=== PATIENT | male | born 1955 | race Caucasian/White ===

== ENCOUNTER 2019-06-25 03:30 | Observation (INO) | payer OTHER ==
[2019-06-25] MEDS ORDERED: Acetaminophen 120 MG Suppository ONE (04:47)
[2019-06-25] MEDS ORDERED: Acetaminophen 325 MG TAB ONE ×2 (04:48→04:49)
[2019-06-25 05:37] LABS: #Basophils 0.1 thou/uL (0.0-0.2); #Eosinphils 0.1 thou/uL (0.0-0.7); #Lymphocytes 1.5 thou/uL (1.20-3.40); #Monocytes 0.8 thou/uL (0.11-0.59); #Neutrophils 3.1 thou/uL (1.40-6.50); %Eosinophils 1.1 % (0.0-10.0); %Lymphocytes 27.3 % (21.0-51.0); %Monocytes 14.8 % (0.0-10.0); %Neutrophils 55.9 % (42.0-75.0); Hemoglobin 7.6 g/dL (14.0-18.0); Hypochromia SLIGHT = 6-15 cells (100X) (0-5/hpf); MDiff Complete? YES; Mean Corpuscular HGB CONC 31.7 g/dL (32.0-36.0); Mean Corpuscular Hemoglobin 21.6 pg (27.0-31.0); Mean Corpuscular Volume 68.2 fL (78.0-98.0); Mean Platelet Volume 9.4 fL (7.4-10.4); Microcytosis SLIGHT = 6-15 cells (100X) (0-5/hpf); Platelet Count 279 thou/uL (130-400); Platelet Morphology Comment Appears Adequate; RBC Distribution Width 22.6 % (11.5-14.5); Red Blood Cell (RBC) Count 3.49 mill/uL (4.70-6.10); White Blood Cell (WBC) Count 5.6 thou/uL (4.8-10.8)
[2019-06-25 06:01] VITALS: BMI 27.6
[2019-06-25] MEDS ORDERED: Zolpidem Tartrate 5 MG TAB PO PRN (07:36)
[2019-06-25] MEDS ORDERED: Ondansetron ODT 4 MG TAB PO PRN (07:36)
[2019-06-25] MEDS ORDERED: PROVENTIL INHALER 6.7 G (200 INHALATIONS) INH PRN (07:38)
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
[2019-06-25] MEDS: Aspirin 81 mg Enteric Coated Tablet PO SCH (08:47)
[2019-06-25] MEDS: Lisinopril 20 MG TAB PO SCH (08:48)
[2019-06-25] MEDS: Famotidine 20 MG TAB PO SCH ×2 (08:48→21:04)
[2019-06-25] MEDS: Metoprolol Tartrate 25 MG TAB PO SCH ×2 (08:49→21:04)
[2019-06-25] MEDS: Loratadine 10 MG TAB PO SCH (08:49)
[2019-06-25] MEDS ORDERED: DILTIAZEM HCL 180 MG PO SCH (09:00)
[2019-06-25] MEDS ORDERED: Non-Formulary Item 1 EACH (Ranitidine Hcl [Ranitidine Hcl] 150 MG) PO SCH (09:00)
[2019-06-25] MEDS ORDERED: Non-Formulary Item 1 EACH (Loratadine [Claritin] 10 MG) PO SCH (09:00)
[2019-06-25] MEDS ORDERED: Non-Formulary Item 1 EACH (Lisinopril [Lisinopril] 40 MG) PO SCH (09:00)
--- NOTE | 2019-06-25 09:19 | RAD ---
CHEST 1 VIEW: HISTORY: COPD. FINDINGS: Heart size and mediastinum are within normal limits. The lungs are clear of infiltrates. There are some degenerative changes of both shoulders. There are some cystic changes seen of the left glenoid and left humeral head. Changes could indicate some type of inflammatory arthritis. IMPRESSION: No active intrathoracic disease. POS: [facility]
[2019-06-25 09:21] LABS: Bilirubin Negative (Negative); Blood, Urine Negative (Negative); Clarity Clear (Clear); Glucose, Urine (Dipstick) Normal (Negative); Leukocyte Negative Leu/uL (Negative); Nitrite Negative (Negative); Protein, Urine (Dipstick) 10 mg/dL (Neg-Trace); RBC/HPF 0-3 HPF (0-3); Squamous Epithelial None Seen HPF (0-3); Urobilinogen Normal mg/dL (Less than 2); WBC/HPF 0-3 HPF (0-3)
[2019-06-25] MEDS: Calcium Carbonate + Vit D 250 MG TAB PO SCH ×3 (09:24→21:04)
[2019-06-25 09:26] LABS: Anion Gap 11 mmol/L (10-20); BUN (Urea Nitrogen) 10 mg/dL (8.4-25.7); Carbon Dioxide 17 mmol/L (23-31); Chloride 96 mmol/L (98-107); Potassium 4.1 mmol/L (3.5-5.1); Sodium 120 mmol/L (136-145)
[2019-06-25 09:27] LABS: ALT (SGPT) 35 U/L (8-55); AST (SGOT) 42 U/L (5-34); Albumin 3.6 g/dL (3.4-4.8); Alkaline Phosphatase 92 U/L (40-110); Bilirubin, Total 0.6 mg/dL (0.2-1.2); Calc. Creatinine Clearance 100 mL/min (70-130); Estimated GFR-MDRD 85; Globulin 3.9 g/dL (2.4-3.5); Glucose 105 mg/dL (80-115); Protein, Total 7.5 g/dL (5.8-8.1)
[2019-06-25 09:42] LABS: Bacteria/HPF None Seen HPF (None Seen)
[2019-06-25] MEDS: Ipratropium Oral Inhaler INH SCH ×3 (10:30→18:16)
[2019-06-25 16:56] LABS: Anion Gap 8 mmol/L (10-20); BUN (Urea Nitrogen) 9 mg/dL (8.4-25.7); Calc. Creatinine Clearance 94 mL/min (70-130); Calcium 8.9 mg/dL (7.8-10.44); Carbon Dioxide 24 mmol/L (23-31); Chloride 96 mmol/L (98-107); Estimated GFR-MDRD 79; Glucose 148 mg/dL (80-115); Iron 13 ug/dL (65-175); Iron Binding Capacity, Total 473 mcg/dL (261-462); Potassium 4.2 mmol/L (3.5-5.1); Sodium 124 mmol/L (136-145)
[2019-06-25] MEDS ORDERED: GoLYTELY 4,000 ml Bottle PO SCH (19:45)
[2019-06-25] MEDS ORDERED: carBAMazepine 200 MG TAB PO SCH ×2 (21:00→21:45)
[2019-06-25] MEDS: DULoxetine 60 MG CAP PO SCH (21:04)
[2019-06-26] MEDS: Acetaminophen 325 MG TAB PO PRN (03:11)
[2019-06-26] MEDS: Enalaprilat Dihydrate 1.25 MG/ML VIAL SLOW IVP PRN (04:43)
[2019-06-26] MEDS ORDERED: GoLYTELY 4,000 ml Bottle PO SCH (05:00)
[2019-06-26] MEDS: Metoprolol Tartrate 25 MG TAB PO SCH ×2 (06:33→21:19)
[2019-06-26 06:53] LABS: Hemoglobin 7.9 g/dL (14.0-18.0); Mean Corpuscular HGB CONC 31.7 g/dL (32.0-36.0); Mean Corpuscular Hemoglobin 21.7 pg (27.0-31.0); Mean Corpuscular Volume 68.6 fL (78.0-98.0); Mean Platelet Volume 9.9 fL (7.4-10.4); Platelet Count 277 thou/uL (130-400); RBC Distribution Width 22.2 % (11.5-14.5); Red Blood Cell (RBC) Count 3.62 mill/uL (4.70-6.10); White Blood Cell (WBC) Count 5.9 thou/uL (4.8-10.8)
[2019-06-26] MEDS: Lisinopril 20 MG TAB PO SCH (06:58)
[2019-06-26] MEDS: Ipratropium Oral Inhaler INH SCH ×4 (07:04→19:42)
[2019-06-26 08:42] LABS: Band 2 % (5-11); Eosinophils 3 % (0-10); Hypochromia MODERATE=16-30 cells (100X) (0-5/hpf); Lymphocytes 19 % (21-51); MDiff Complete? YES; Microcytosis MODERATE=15-30 cells (100X) (0-5/hpf); Monocytes 17 % (0-10); Myelocyte 1 % (0-0); Neutrophil 58 % (42-75); Ovalocytes SLIGHT = 2-5 cells (100X) (0-1/hpf); Platelet Morphology Comment Appears Adequate; Polychromasia SLIGHT = 2-3 cells (100X) (0-2/hpf)
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
[2019-06-26] MEDS: Famotidine 20 MG TAB PO SCH ×2 (11:44→21:18)
[2019-06-26] MEDS: Loratadine 10 MG TAB PO SCH (11:44)
[2019-06-26] MEDS: Calcium Carbonate + Vit D 250 MG TAB PO SCH ×3 (11:44→21:18)
[2019-06-26] MEDS: Aspirin 81 mg Enteric Coated Tablet PO SCH (11:44)
[2019-06-26 13:47] LABS: Anion Gap 12 mmol/L (10-20); BUN (Urea Nitrogen) 6 mg/dL (8.4-25.7); Calc. Creatinine Clearance 118 mL/min (70-130); Calcium 8.8 mg/dL (7.8-10.44); Carbon Dioxide 22 mmol/L (23-31); Chloride 94 mmol/L (98-107); Estimated GFR-MDRD Greater than 90; Glucose 105 mg/dL (80-115); Potassium 4.3 mmol/L (3.5-5.1); Sodium 124 mmol/L (136-145)
--- NOTE | 2019-06-26 16:00 | PRG ---
DATE OF SERVICE: 06/26/2019 SUBJECTIVE: Mr. Yarbrough was not clear after the first 6 L of GoLYTELY and received an additional 2 L. He came downstairs for endoscopy. However, on review of his labs, Anesthesiology was not comfortable with the sodium level and the procedure was canceled for today. OBJECTIVE: VITAL SIGNS: Temperature 97.6, pulse 63, and blood pressure 192/86. GENERAL: He is in no acute distress. He is alert and oriented x3. LUNGS: Clear to auscultation bilaterally. HEART: Regular rate and rhythm without murmur. ABDOMEN: soft, nontender, nondistended. Bowel sounds are present. EXTREMITIES: No lower extremity edema. LABORATORY DATA: White blood cell count 5.9, hemoglobin 7.9, platelets 277. Sodium 124, potassium 4.3, chloride 94, CO2 of 22, BUN 6, creatinine 0.77. IMPRESSION: 1. Chronic iron deficiency anemia. His ferritin is 9 with a low iron and high TIBC. 2. Chronic hyponatremia. The patient is asymptomatic and reports he has had a low sodium for years, however, we do not have documentation of the severity of that. RECOMMENDATIONS: I spoke with the patient's Internal Medicine doctor and he will evaluate the hyponatremia further. We will delay the colonoscopy and EGD tentatively until tomorrow to recheck the trend of his sodium. As long as this is trending up, then we would anticipate we should be able to do these procedures tomorrow. If not then, they would be held until the sodium is looking better. Dr. Gonzalez will be covering for the weekend. Job ID: [id number]
--- NOTE | 2019-06-26 16:43 | PDOC.HOSPP ---
- Subjective Subjective: drinking golytely bowel prep for coloncoscopy, tolerating oral intake - Objective Vital Signs & Weight: Vital Signs (12 hours) Temp Pulse Resp BP BP BP Pulse Ox 06/26/19 11:53 97.6 F 63 18 192/86 H 100 06/26/19 08:00 99 06/26/19 07:22 97.8 F 68 20 184/90 H 99 06/26/19 06:58 194/83 H 06/26/19 06:30 194/83 H 06/26/19 04:43 183/81 H Weight Weight 182 lb 4 oz I&O: 06/25/19 06/26/19 06/27/19 06:59 06:59 06:59 Intake Total 6000 Output Total 350 750 Balance -350 5250 Result Diagrams: 06/26/19 06:05 06/26/19 13:19 Hospitalist ROS - Review of Systems Constitutional: denies: fever, chills Respiratory: denies: shortness of breath Gastrointestinal: denies: abdominal pain - Medication Medications: Active Medications Generic Name Dose Route Start Last Admin Trade Name Freq PRN Reason Stop Dose Admin Acetaminophen 650 mg 06/25/19 07:36 06/26/19 03:11 Tylenol PO 650 mg Q4H PRN Administration Headache/Fever/Mild Pain (1-3) Aspirin 81 mg 06/25/19 09:00 06/26/19 11:44 Ecotrin PO Not Given DAILY [facility] Calcium/Vitamin D 250 mg 06/25/19 09:00 06/26/19 11:44 Oscal + Vit D PO Not Given TID MUSA Diltiazem HCl 180 mg 06/26/19 09:00 06/26/19 06:59 Cardizem Cd PO 180 mg BID MUSA Administration Duloxetine HCl 60 mg 06/25/19 21:00 06/25/19 21:04 Cymbalta PO 60 mg HS MUSA Administration Enalaprilat 0.625 mg 06/26/19 01:02 06/26/19 04:43 Vasotec SLOW IVP 0.625 mg Q6HR PRN Administration SBP GREATER THAN 160 Famotidine 20 mg 06/25/19 09:00 06/26/19 11:44 Pepcid PO Not Given BID [facility] Ipratropium [place] 2 puff 06/25/19 11:00 06/26/19 14:02 Atrovent Hfa INH Not Given QID-RT MUSA Lisinopril 40 mg 06/25/19 09:00 06/26/19 06:58 Zestril PO 40 mg DAILY MUSA Administration Loratadine 10 mg 06/25/19 09:00 06/26/19 11:44 Claritin PO Not Given DAILY MUSA Metoprolol Tartrate 25 mg 06/25/19 09:00 06/26/19 06:33 Lopressor PO 25 mg BID MUSA Administration - Exam General Appearance: NAD, awake alert Eye: PERRL, anicteric sclera ENT: normocephalic atraumatic, dry oral mucosa Neck: supple, no JVD Heart: RRR, no rubs Respiratory: CTAB, no wheezes, no rales Gastrointestinal: soft, non-tender, non-distended, normal bowel sounds Extremities: no clubbing, no edema Skin: no lesions, no rashes Neurological: cranial nerve grossly intact, no focal deficits Musculoskeletal: normal tone, normal strength Psychiatric: normal affect, normal behavior Hosp A/P (1) Anemia Code(s): D64.9 - ANEMIA, UNSPECIFIED Status: Acute Qualifiers: Anemia type: unspecified type Qualified Code(s): D64.9 - Anemia, unspecified Plan: s/p PRBC x2 units; will closely monitor hemoglobin and transfuse as clinically indicated (2) GIB (gastrointestinal bleeding) Code(s): K92.2 - GASTROINTESTINAL HEMORRHAGE, UNSPECIFIED Status: Acute Qualifiers: GI bleed type/associated pathology: unspecified gastrointestinal hemorrhage type Qualified Code(s): K92.2 - Gastrointestinal hemorrhage, unspecified Plan: EGD and colonoscopy (3) Hyponatremia Code(s): E87.1 - HYPO-OSMOLALITY AND HYPONATREMIA Status: Acute Plan: baseline hyponatremia with dehydration due to bowel prep likely contributing; will add IV fluids and repeat in AM (4) COPD (chronic obstructive pulmonary disease) Status: Acute Qualifiers: COPD type: unspecified COPD Qualified Code(s): J44.9 - Chronic obstructive pulmonary disease, unspecified Plan: continue nebulizer, bronchodilators, supplemental oxygen. (5) HTN (hypertension) Code(s): I10 - ESSENTIAL (PRIMARY) HYPERTENSION Status: Acute Qualifiers: Hypertension type: essential hypertension Qualified Code(s): I10 - Essential (primary) hypertension
[2019-06-26] MEDS ORDERED: Sodium Chloride 1 GM TAB PO SCH (16:45)
[2019-06-26] MEDS: Sodium Chloride 0.9% 1,000 ML IV SCH (17:53)
[2019-06-26] MEDS: DULoxetine 60 MG CAP PO SCH (21:18)
[2019-06-26] MEDS: carBAMazepine 200 MG TAB PO SCH (21:19)
[2019-06-27] MEDS ORDERED: hydrALAZINE 20 MG/ML VIAL SLOW IVP SCH (00:30)
[2019-06-27] MEDS: Sodium Chloride 0.9% 1,000 ML IV SCH ×3 (00:58→16:13)
[2019-06-27 05:36] LABS: Anion Gap 11 mmol/L (10-20); BUN (Urea Nitrogen) 4 mg/dL (8.4-25.7); Calc. Creatinine Clearance 123 mL/min (70-130); Calcium 8.7 mg/dL (7.8-10.44); Carbon Dioxide 20 mmol/L (23-31); Chloride 101 mmol/L (98-107); Estimated GFR-MDRD Greater than 90; Glucose 97 mg/dL (80-115); Sodium 128 mmol/L (136-145)
[2019-06-27] MEDS: Metoprolol Tartrate 25 MG TAB PO SCH ×2 (05:41→21:33)
[2019-06-27 06:15] LABS: Anisocytosis MODERATE=16-30 cells (100X) (0-5/hpf); Eosinophils 2 % (0-10); Hypochromia SLIGHT = 6-15 cells (100X) (0-5/hpf); Lymphocytes 28 % (21-51); MDiff Complete? YES; Mean Corpuscular HGB CONC 32.1 g/dL (32.0-36.0); Mean Corpuscular Hemoglobin 21.9 pg (27.0-31.0); Mean Corpuscular Volume 68.3 fL (78.0-98.0); Mean Platelet Volume 9.6 fL (7.4-10.4); Microcytosis MODERATE=15-30 cells (100X) (0-5/hpf); Monocytes 15 % (0-10); Neutrophil 55 % (42-75); Platelet Count 242 thou/uL (130-400); Platelet Morphology Comment Appears Adequate; Polychromasia SLIGHT = 2-3 cells (100X) (0-2/hpf); RBC Distribution Width 22.9 % (11.5-14.5); Red Blood Cell (RBC) Count 3.64 mill/uL (4.70-6.10); White Blood Cell (WBC) Count 4.5 thou/uL (4.8-10.8)
[2019-06-27] MEDS: Aspirin 81 mg Enteric Coated Tablet PO SCH (07:46)
[2019-06-27] MEDS: Famotidine 20 MG TAB PO SCH (07:47)
[2019-06-27] MEDS: Calcium Carbonate + Vit D 250 MG TAB PO SCH ×3 (07:47→21:33)
[2019-06-27] MEDS: Loratadine 10 MG TAB PO SCH (07:48)
[2019-06-27] MEDS: Lisinopril 20 MG TAB PO SCH (07:48)
[2019-06-27] MEDS: Ipratropium Oral Inhaler INH SCH ×4 (08:16→19:36)
[2019-06-27 09:16] LABS: Sodium 129 mmol/L (136-145)
[2019-06-27] MEDS ORDERED: Ketamine 50 MG/ML (10ML VIAL) ONE (10:20)
[2019-06-27] MEDS ORDERED: PROPOFOL 200 MG/20 ML VIAL ONE (10:28)
[2019-06-27] MEDS ORDERED: ePHEDrine 50 MG/ML VIAL ONE (10:28)
--- NOTE | 2019-06-27 12:39 | OP ---
DATE OF PROCEDURE: 06/27/2019 PROCEDURES PERFORMED: 1. Esophagogastroduodenoscopy with biopsy. 2. Esophagogastroduodenoscopy with 7-Sudanese BICAP probe therapy of arteriovenous malformations in the duodenum. PREOPERATIVE DIAGNOSIS: Anemia. POSTOPERATIVE DIAGNOSES: 1. Normal esophageal mucosa. 2. Small hiatal hernia with mild mucosal erythema of the gastroesophageal junction. 3. Gastric antrum showed shallow ulceration with gastritis. 4. Arteriovenous malformation over the descending duodenum and also around the second part of the duodenum. At the time of endoscopy, no active bleeding seen. DESCRIPTION OF PROCEDURE: The patient was placed on his left lateral position and was given sedation by Anesthesia Department. A Pentax video gastroscope under direct vision was passed down the oropharynx, past the GE junction into the stomach and subsequently into the descending duodenum. At the time of endoscopy, the stomach does not show any active bleeding and stomach was completely empty. The esophageal mucosa appears normal. At the GE junction, there was mild mucosal erythema and a small nodule. This was not biopsied. Retroflexion failed to show any pathology in fundus or cardia. In the gastric body, no pathology. The gastric antrum showed shallow ulceration that appears to be healing with some mucosal edema, erythema. Biopsies obtained from the area. The duodenal bulb, no pathology seen. The descending duodenum, no pathology seen. The scope was advanced into the fourth part of the duodenum and carefully withdrawn. I believe on the third part he had a small AVM, nonbleeding. This was easily cauterized with a 7-Sudanese BICAP probe. There is another AVM, which appears little larger and around the duodenal sweep. This again cauterized with a 7-Sudanese BICAP probe. At the end of the procedure, there was no active bleeding seen. Also, random biopsy from the descending duodenum. The stomach was decompressed and the scope removed. RECOMMENDATIONS: As follows; 1. Continue famotidine as before. 2. Iron supplement. 3. Regular diet. Job ID: [id number]
[2019-06-27] MEDS: Acetaminophen 325 MG TAB PO PRN (15:13)
--- NOTE | 2019-06-27 16:59 | PDOC.HOSPP ---
- Subjective Encounter Date: 06/27/19 Subjective: sodium level has improved; tolerating oral intake s/p EGD and colonoscopy; denies bleeding - Objective Vital Signs & Weight: Vital Signs (12 hours) Temp Pulse Resp BP BP Pulse Ox 06/27/19 15:49 98.2 F 68 16 136/58 L 95 06/27/19 15:15 145/66 H 06/27/19 12:00 97.6 F 62 16 133/64 100 06/27/19 07:48 163/69 H 06/27/19 07:46 98.6 F 66 16 163/69 H 96 06/27/19 07:00 98.4 F 67 16 180/68 H 97 Weight Weight 182 lb 4 oz I&O: 06/26/19 06/27/19 06/28/19 06:59 06:59 06:59 Intake Total 7900 Output Total 350 750 Balance -350 7150 Result Diagrams: 06/27/19 04:50 06/27/19 08:49 Hospitalist ROS - Review of Systems Respiratory: denies: shortness of breath Cardiovascular: denies: chest pain Gastrointestinal: denies: abdominal pain - Medication Medications: Active Medications Generic Name Dose Route Start Last Admin Trade Name Freq PRN Reason Stop Dose Admin Acetaminophen 650 mg 06/25/19 07:36 06/27/19 15:13 Tylenol PO 650 mg Q4H PRN Administration Headache/Fever/Mild Pain (1-3) Aspirin 81 mg 06/25/19 09:00 06/27/19 07:46 Ecotrin PO Not Given DAILY MUSA Calcium/Vitamin D 250 mg 06/25/19 09:00 06/27/19 15:16 Oscal + Vit D PO 250 mg TID MUSA Administration Carbamazepine 400 mg 06/26/19 21:00 06/26/19 21:19 Tegretol PO 400 mg HS MUSA Administration Diltiazem HCl 180 mg 06/26/19 09:00 06/27/19 07:47 Cardizem Cd PO 180 mg BID MUSA Administration Duloxetine HCl 60 mg 06/25/19 21:00 06/26/19 21:18 Cymbalta PO 60 mg HS MUSA Administration Enalaprilat 0.625 mg 06/26/19 01:02 06/26/19 04:43 Vasotec SLOW IVP 0.625 mg Q6HR PRN Administration SBP GREATER THAN 160 Famotidine 20 mg 06/25/19 09:00 06/27/19 07:47 Pepcid PO 20 mg BID MUSA Administration Sodium Chloride 1,000 mls @ 125 mls/hr 06/26/19 16:45 06/27/19 16:13 Normal Saline 0.9% IV 1,000 mls .Q8H MUSA Administration Ipratropium [place] 2 puff 06/25/19 11:00 06/27/19 14:09 Atrovent Hfa INH 2 puff QID-RT MUSA Administration Lisinopril 40 mg 06/25/19 09:00 06/27/19 07:48 Zestril PO 40 mg DAILY MUSA Administration Loratadine 10 mg 06/25/19 09:00 06/27/19 07:48 Claritin PO 10 mg DAILY MUSA Administration Metoprolol Tartrate 25 mg 06/25/19 09:00 06/27/19 05:41 Lopressor PO 25 mg BID MUSA Administration - Exam General Appearance: NAD, awake alert Eye: PERRL, anicteric sclera ENT: normocephalic atraumatic, moist mucosa Neck: supple, no JVD Heart: RRR, no murmur Respiratory: CTAB, no wheezes, normal chest expansion Gastrointestinal: soft, non-tender, non-distended, normal bowel sounds Extremities: no cyanosis, no clubbing Skin: normal turgor, no lesions Neurological: cranial nerve grossly intact, normal sensation to touch, no focal deficits Musculoskeletal: normal tone, normal strength Psychiatric: normal affect, normal behavior, A&O x 3, oriented to person Hosp A/P (1) Anemia Code(s): D64.9 - ANEMIA, UNSPECIFIED Status: Acute Qualifiers: Anemia type: unspecified type Qualified Code(s): D64.9 - Anemia, unspecified Plan: patient had cauterization of gastric ulcer, thus will monitor overnight with discharge planning in the morning; (2) GIB (gastrointestinal bleeding) Code(s): K92.2 - GASTROINTESTINAL HEMORRHAGE, UNSPECIFIED Status: Acute Qualifiers: GI bleed type/associated pathology: unspecified gastrointestinal hemorrhage type Qualified Code(s): K92.2 - Gastrointestinal hemorrhage, unspecified (3) Hyponatremia Code(s): E87.1 - HYPO-OSMOLALITY AND HYPONATREMIA Status: Acute Plan: acute on chronic hyponatremia, now asymptomatic (4) COPD (chronic obstructive pulmonary disease) Status: Acute Qualifiers: COPD type: unspecified COPD Qualified Code(s): J44.9 - Chronic obstructive pulmonary disease, unspecified Plan: continue nebulizer bronchodilators (5) HTN (hypertension) Code(s): I10 - ESSENTIAL (PRIMARY) HYPERTENSION Status: Acute Qualifiers: Hypertension type: essential hypertension Qualified Code(s): I10 - Essential (primary) hypertension
[2019-06-27] MEDS: DULoxetine 60 MG CAP PO SCH (21:32)
[2019-06-27] MEDS: carBAMazepine 200 MG TAB PO SCH (21:33)
[2019-06-28] MEDS: Sodium Chloride 0.9% 1,000 ML IV SCH ×2 (00:22→08:45)
[2019-06-28] MEDS: Enalaprilat Dihydrate 1.25 MG/ML VIAL SLOW IVP PRN (01:08)
[2019-06-28] MEDS: Ipratropium Oral Inhaler INH SCH ×4 (07:04→18:39)
[2019-06-28] MEDS: Loratadine 10 MG TAB PO SCH (08:36)
[2019-06-28] MEDS: Calcium Carbonate + Vit D 250 MG TAB PO SCH ×3 (08:36→19:33)
[2019-06-28] MEDS: Lisinopril 20 MG TAB PO SCH (08:37)
[2019-06-28] MEDS: Metoprolol Tartrate 25 MG TAB PO SCH ×2 (08:37→19:33)
[2019-06-28] MEDS: Acetaminophen 325 MG TAB PO PRN (08:40)
--- NOTE | 2019-06-28 17:13 | EKG ---
Test Reason : Blood Pressure : / mmHG Vent. Rate : 067 BPM Atrial Rate : 067 BPM P-R Int : 176 ms QRS Dur : 098 ms QT Int : 394 ms P-R-T Axes : 037 -32 005 degrees QTc Int : 416 ms Normal sinus rhythm Left axis deviation Abnormal ECG No previous ECGs available Confirmed by NAOMI PALACIOS (2) on 06/28/2019 5:13:29 PM Referred By: ROMIE Confirmed By:NAOMI PALACIOS
[2019-06-28] MEDS: carBAMazepine 200 MG TAB PO SCH (19:33)
[2019-06-28] MEDS: DULoxetine 60 MG CAP PO SCH (19:33)
[2019-06-28 19:38] VITALS: BP 165/69; TEMP 98.7
--- NOTE | 2019-06-29 00:07 | DIS ---
DATE OF ADMISSION: 06/25/2019 DATE OF DISCHARGE: 06/28/2019 DISPOSITION: The patient was discharged to the PACU unit of [facility]. FINAL DIAGNOSES: 1. Acute on chronic anemia, post hemorrhagic. 2. Essential hypertension. 3. Chronic obstructive pulmonary disease. 4. Gastric ulcer. 5. Hyponatremia, acute on chronic. CONDITION: Stable and improved. DIET: Regular diet. MEDICATIONS: Please refer to medication discharge reconciliation form. ACTIVITY: As tolerated. Do not over exert yourself, no strenuous activities. DISCHARGE INSTRUCTIONS: If any fevers, chills, nausea, vomiting, chest pain, shortness of breath, bleeding, swelling, weakness, numbness, seek immediate medical attention. CONSULTANTS: Dr. Gonzalez of Gastroenterology. PROCEDURE: An EGD that has found a gastric ulcer at the surface, there was no active bleeding. His hemoglobin on admission was 7.6, subsequent hemoglobin was 7.9 and then it was 8.0 upon discharge and no acute bleeding. BRIEF HOSPITAL COURSE: Mr. Carlos Yarbrough is a 63-year-old male with history of COPD, who has had previous EGD and colonoscopy, who presented to the emergency room at [place], was found to be anemic and was admitted to the hospital with a Gastroenterology consultation, where he underwent an EGD, was found to have a gastric ulcer. He was also noted to be hyponatremic with sodium 120 on admission, was subsequently rehydrated with fluids, from which sodium is 139. He remained asymptomatic. There was no neurological symptomatolgy. He was ambulatory and tolerating oral intake and nontoxic appearing. On the day of discharge, during my [id number] meeting with the patient, I discussed all discharge instructions including the need for compliance with medication, followup and when to return to the emergency room for which he has verbalized understanding. TIME SPENT: Total discharge time spent 35 minutes. Job ID: [id number]
--- NOTE | 2019-06-29 12:12 | PRG ---
DATE OF SERVICE: 06/28/2019 SUBJECTIVE: This is a 63-year-old male with recurrent _iro deficiency anemia. He underwent EGD and was found to have a shallow ulcer of the gastric antrum and 2 AVMs of the duodenum, which were cauterized. A colonoscopy was done, which was negative. The patient is tolerating diet. No abdominal pain. No nausea. No vomiting. He has no stool today. Blood count is fairly stable, hemoglobin 8, hematocrit 24.8, MCV 68.3. PHYSICAL EXAMINATION: GENERAL: Appears comfortable. VITAL SIGNS: Afebrile. Pulse 71, blood pressure 139/57. CARDIOVASCULAR: First and second heart sounds are normal. LUNGS: Clear to auscultation. ABDOMEN: Soft. No organomegaly. No tenderness. No masses. IMPRESSION: 1. Microcytic anemia. 2. Gastric ulcer, gastritis. 3. AVM x2, duodenum, status post BICAP therapy. RECOMMENDATIONS: 1. Iron supplement. 2. Follow up H and H. 3. No further GI workup necessary and the patient can be sent back to [facility] in next 24 hours. Job ID: [id number] MTDD
--- NOTE | 2019-06-30 09:18 | OP ---
DATE OF PROCEDURE: 06/27/2019 PROCEDURE PERFORMED: Colonoscopy PREOPERATIVE DIAGNOSIS: Recurrent iron deficiency anemia and occult gastrointestinal bleeding. POSTOPERATIVE DIAGNOSIS: Normal colonoscopy. DESCRIPTION OF PROCEDURE: The patient was placed on his left lateral position and was given sedation by anesthesia dept. A rectal exam was done before the scope was advanced in to the rectum.No lesions felt on rectal exam.A Pentax video colonoscope was inroduced in to the rectum and advanced all the way In to the Cecum.With drawl of the scope from the cecum, ascending colon, hepatic flexure, no pathology seen. In the transverse colon no pathology seen.The descending co;on , sigmoid colon no lesion seen . Rectum showed hemorrhoids.. Job ID: [id number] MTDD
== END 2019-06-28 19:37 ==
LOC: ERS 03:30 → T4-A 04:17
PROVIDERS: ADMIT Family Medicine; ATTEND Family Medicine
PROC: 0DB78ZX Excision of Stomach, Pylorus, Via Natural or Artificial Opening Endoscopic, Diagnostic (ICD-10-PCS; principal; 2019-06-27)
PROC: 0D598ZZ Destruction of Duodenum, Via Natural or Artificial Opening Endoscopic (ICD-10-PCS; 2019-06-27)
PROC: 0DJD8ZZ Inspection of Lower Intestinal Tract, Via Natural or Artificial Opening Endoscopic (ICD-10-PCS; 2019-06-28)
DX: D62 Acute posthemorrhagic anemia (principal); K31.89 Other diseases of stomach and duodenum; K31.811 Angiodysplasia of stomach and duodenum with bleeding; K25.4 Chronic or unspecified gastric ulcer with hemorrhage; K64.9 Unspecified hemorrhoids; I10 Essential (primary) hypertension; J44.9 Chronic obstructive pulmonary disease, unspecified; E87.1 Hypo-osmolality and hyponatremia; E78.5 Hyperlipidemia, unspecified; I25.10 Atherosclerotic heart disease of native coronary artery without angina pectoris; Z79.82 Long term (current) use of aspirin; Z79.899 Other long term (current) drug therapy; Z89.612 Acquired absence of left leg above knee
CPT/HCPCS: 36415; 71045; 80048; 80053; 81001; 82728; 83540; 83550; 85025; 86850; 86900; 86901; 88305; 88312; 93005; 93010; 96361; 96374; 96375; 96376; 99285; G0378; J0360; J2704; J3490

== ENCOUNTER 2019-11-15 22:23 | Inpatient (IN) | payer OTHER ==
[2019-11-15] MEDS ORDERED: Atropine Sulfate 1 mg/10 ml Syringe ONE (23:02)
[2019-11-15 23:37] LABS: Hemoglobin 6.8 g/dL (14.0-18.0); Mean Corpuscular HGB CONC 31.8 g/dL (32.0-36.0); Mean Corpuscular Hemoglobin 22.9 pg (27.0-31.0); Mean Corpuscular Volume 72.1 fL (78.0-98.0); Mean Platelet Volume 8.7 fL (7.4-10.4); Platelet Count 266 thou/uL (130-400); RBC Distribution Width 16.3 % (11.5-14.5); Red Blood Cell (RBC) Count 2.96 mill/uL (4.70-6.10); White Blood Cell (WBC) Count 6.8 thou/uL (4.8-10.8)
[2019-11-15 23:52] LABS: Amphetamine Not Detected (NotDetected); Barbiturates Screen Not Detected (NotDetected); Benzodiazepine Screen Not Detected (NotDetected); Cocaine Metabolite Screen Not Detected (NotDetected); Medtox Control Line Valid? VALID (VALID); Medtox Reader # READER 4; Methadone Not Detected (NotDetected); Methamphetamine Not Detected (NotDetected); Opiate Screen Not Detected (NotDetected); Oxycodone Screen Not Detected (NotDetected); Phencyclidine (PCP) Not Detected (NotDetected); THC/Cannabinoid Screen Not Detected (NotDetected); Tricyclic Screen Not Detected (NotDetected)
[2019-11-15 23:58] LABS: #Basophils 0.1 thou/uL (0.0-0.2); #Lymphocytes 1.6 thou/uL (1.20-3.40); #Monocytes 0.6 thou/uL (0.11-0.59); #Neutrophils 4.5 thou/uL (1.40-6.50); %Eosinophils 0.7 % (0.0-10.0); %Monocytes 9.1 % (0.0-10.0); %Neutrophils 66.3 % (42.0-75.0); Hypochromia SLIGHT = 6-15 cells (100X) (0-5/hpf); MDiff Complete? YES; Microcytosis SLIGHT = 6-15 cells (100X) (0-5/hpf)
[2019-11-16 00:09] LABS: ALT (SGPT) 26 U/L (8-55); AST (SGOT) 23 U/L (5-34); Albumin 3.5 g/dL (3.4-4.8); Alkaline Phosphatase 98 U/L (40-110); Anion Gap 10 mmol/L (10-20); BUN (Urea Nitrogen) 22 mg/dL (8.4-25.7); Bilirubin, Total 0.2 mg/dL (0.2-1.2); Calc. Creatinine Clearance 0 mL/min (70-130); Calcium 7.8 mg/dL (7.8-10.44); Carbon Dioxide 21 mmol/L (23-31); Chloride 88 mmol/L (98-107); Estimated GFR-MDRD 44; Globulin 3.3 g/dL (2.4-3.5); Glucose 132 mg/dL (80-115); Magnesium 1.8 mg/dL (1.6-2.6); Potassium 4.8 mmol/L (3.5-5.1); Protein, Total 6.8 g/dL (5.8-8.1)
[2019-11-16 00:16] LABS: Sodium 114 mmol/L (136-145)
[2019-11-16] MEDS ORDERED: Sodium Chloride 3% 500 ML IVPB SCH (00:30)
[2019-11-16] MEDS ORDERED: Sodium Chloride 3% 100 ML IVPB SCH (00:45)
[2019-11-16 00:55] LABS: Iron Less than 8 ug/dL (65-175); Iron Binding Capacity, Total 434 mcg/dL (261-462)
[2019-11-16] MEDS ORDERED: Pantoprazole 40 MG VIAL ONE ×3 (03:53→09:21)
[2019-11-16 04:42] LABS: Anion Gap 15 mmol/L (10-20); BUN (Urea Nitrogen) 24 mg/dL (8.4-25.7); Calc. Creatinine Clearance 0 mL/min (70-130); Calcium 8.1 mg/dL (7.8-10.44); Carbon Dioxide 19 mmol/L (23-31); Chloride 88 mmol/L (98-107); Estimated GFR-MDRD 39; Glucose 112 mg/dL (80-115); Potassium 4.6 mmol/L (3.5-5.1)
[2019-11-16 04:45] LABS: Troponin I 0.013 ng/mL (< 0.028)
[2019-11-16 04:47] LABS: Sodium 117 mmol/L (136-145)
[2019-11-16] MEDS ORDERED: Iron Sucrose Complex 200 MG in Sodium Chloride 0.9% 250 ML 250 ML IVPB SCH (05:30)
[2019-11-16] MEDS ORDERED: Iron, Sodium Ferric Gluconate 250 MG in Sodium Chloride 0.9% 100 ML IVPB SCH (06:00)
[2019-11-16] MEDS ORDERED: hydrALAZINE 20 MG/ML VIAL SLOW IVP PRN (06:13)
[2019-11-16] MEDS ORDERED: Calcium Carbonate 500 MG ChewTAB PO PRN (06:17)
[2019-11-16] MEDS ORDERED: Acetaminophen 325 MG TAB PO PRN (06:17)
[2019-11-16] MEDS ORDERED: Ondansetron PF 4 MG/2 ML Vial IVP PRN (06:17)
[2019-11-16] MEDS ORDERED: Senokot S 8.6-50 MG TAB PO PRN (06:17)
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
[2019-11-16] MEDS: carBAMazepine 200 MG TAB PO SCH ×3 (08:10→21:15)
[2019-11-16] MEDS ORDERED: Pantoprazole 40 MG VIAL IVP SCH (09:00)
[2019-11-16] MEDS ORDERED: hydrALAZINE 25 MG TAB ONE ×2 (09:21→15:30)
[2019-11-16] MEDS ORDERED: Acetaminophen 325 MG TAB ONE (09:24)
[2019-11-16] MEDS: Heparin 5,000 UNITS/ML VIAL SC SCH ×2 (09:31→21:16)
[2019-11-16] MEDS: hydrALAZINE 25 MG TAB PO SCH ×3 (09:31→21:16)
[2019-11-16 11:04] LABS: Hemoglobin 8.2 g/dL (14.0-18.0)
[2019-11-16 11:28] LABS: Anion Gap 12 mmol/L (10-20); BUN (Urea Nitrogen) 19 mg/dL (8.4-25.7); Calc. Creatinine Clearance 0 mL/min (70-130); Calcium 8.6 mg/dL (7.8-10.44); Carbon Dioxide 23 mmol/L (23-31); Chloride 95 mmol/L (98-107); Estimated GFR-MDRD 52; Glucose 145 mg/dL (80-115); Potassium 3.7 mmol/L (3.5-5.1); Sodium 126 mmol/L (136-145)
[2019-11-16 16:39] VITALS: BMI 24.7
--- NOTE | 2019-11-16 16:48 | PDOC.HOSPP ---
- Subjective Encounter Date: 11/16/19 Encounter Time: 12:45 Subjective: pt up in bed no complains - Objective Vital Signs & Weight: Vital Signs (12 hours) Pulse Pulse Pulse BP BP BP Pulse Ox 11/16/19 15:28 82 164/119 H 11/16/19 14:49 84 88 166/80 H 164/119 H 96 11/16/19 09:31 82 178/79 H Pulse Ox 11/16/19 15:28 11/16/19 14:49 97 11/16/19 09:31 Weight Weight 162 lb 11.2 oz Result Diagrams: 11/16/19 10:43 11/16/19 10:43 Hospitalist ROS - Review of Systems Cardiovascular: denies: chest pain, palpitations, orthopnea, paroxysmal noc. dyspnea, edema, light headedness, other Gastrointestinal: denies: nausea, vomiting, abdominal pain, diarrhea, constipation, melena, hematochezia, other Genitourinary: denies: dysuria, frequency, incontinence, hematuria, retention, other - Medication Medications: Active Medications Generic Name Dose Route Start Last Admin Trade Name Freq PRN Reason Stop Dose Admin Acetaminophen 650 mg 11/16/19 06:17 11/16/19 09:32 Tylenol PO 650 mg Q4H PRN Administration Headache/Fever/Mild Pain (1-3) Carbamazepine 200 mg 11/16/19 08:00 11/16/19 08:10 Tegretol PO 200 mg BID-WM MUSA Administration Heparin Sodium (Porcine) 5,000 units 11/16/19 09:00 11/16/19 09:31 Heparin SC 5,000 units BID MUSA Administration Hydralazine HCl 25 mg 11/16/19 09:00 11/16/19 15:28 Apresoline PO 25 mg TID MUSA Administration Pantoprazole Sodium 40 mg 11/16/19 09:00 11/16/19 09:32 Protonix IVP 40 mg Q12HR MUSA Administration - Exam Neck: negative: supple, symmetric, no JVD, no thyromegaly, no lymphadenopathy, no carotid bruit, JVD Heart: negative: RRR, no murmur, no gallops, no rubs, normal peripheral pulses, irregular, diminshed peripheral pulses, murmur present, II/IV, III/IV Respiratory: negative: CTAB, no wheezes, no rales, no ronchi, normal chest expansion, no tachypnea, normal percussion, rales, rhonchi, tachypneic, wheezes Gastrointestinal: negative: soft, non-tender, non-distended, normal bowel sounds , no palpable masses, no hepatomegaly, no splenomegaly, no bruit, no guarding, no rigidity, tender to palpation, distended, diminished bowl sounds, voluntary guarding Extremities: negative: no cyanosis, no clubbing, no edema, 1+ LE edema, 2+ LE edema, clubbing Hosp A/P (1) HTN (hypertension) Code(s): I10 - ESSENTIAL (PRIMARY) HYPERTENSION Status: Acute Qualifiers: (2) Hyponatremia Code(s): E87.1 - HYPO-OSMOLALITY AND HYPONATREMIA Status: Acute (3) Sinus bradycardia Code(s): R00.1 - BRADYCARDIA, UNSPECIFIED Status: Acute - Plan evaluated pt's ekg which indicated junctional he is diltizam. On my evaluated he was SR. Pt denies any chest pain. yolanda cardio who stated to change to po cardizem 30bid instead of 180mg SR. Also his sodium has improved. will put him on restriction.
[2019-11-16] MEDS ORDERED: Simethicone Chewable 80 MG TAB PO PRN (16:55)
[2019-11-16 17:34] LABS: Anion Gap 10 mmol/L (10-20); BUN (Urea Nitrogen) 17 mg/dL (8.4-25.7); Calc. Creatinine Clearance 83 mL/min (70-130); Calcium 8.5 mg/dL (7.8-10.44); Carbon Dioxide 24 mmol/L (23-31); Chloride 98 mmol/L (98-107); Estimated GFR-MDRD 78; Glucose 111 mg/dL (80-115); Sodium 128 mmol/L (136-145)
--- NOTE | 2019-11-16 17:34 | CON ---
DATE OF CONSULTATION: CONSULTING PHYSICIAN: Diana Stapleton MD REQUESTING PHYSICIANS: Flaco Sharif MD and ER physician. REASON FOR CONSULTATION: Hyponatremia. IMPRESSION: Hyponatremia. This is likely in the context of compulsive water drinking. Therefore, this is likely to be dilutional hyponatremia. PLAN: Restrict water intake in this patient and sodium will auto correct. Urine chemistry highly suggestive of dilutional hyponatremia. HISTORY OF PRESENT ILLNESS: History is that of a 63-year-old incarcerated gentleman, who presented here noted with shortness of breath and noted with a sodium of about 114. The patient also noted to be anemic, requiring blood transfusion. Because of the low sodium, decision was taken to involve Renal in the management of this case. Evaluation of the urine chemistry is highly suggestive of dilutional hyponatremia in the context of compulsive water drinking. The patient did agree to the fact that he drinks quite a bit of water. PAST MEDICAL HISTORY: Significant for anemia, hyponatremia, hepatitis C, COPD, hypertension, reflux disease, and peptic ulcer. ALLERGIES: NO KNOWN DRUG ALLERGIES. MEDICATIONS: Reviewed as documented on [employer]. SOCIAL HISTORY: The patient is incarcerated. FAMILY HISTORY: Not significant related to present illness. REVIEW OF SYSTEMS: As documented in the body of the history. All the other systems were reviewed and found not to be significantly related to presenting illness. PHYSICAL EXAMINATION: GENERAL: The patient was noted to be hemodynamically stable. VITAL SIGNS: Blood pressure 178/79. HEENT: Unremarkable. CARDIOVASCULAR SYSTEM: First and second heart sounds were heard. RESPIRATORY SYSTEM: Clear to auscultation. DIGESTIVE SYSTEM: Revealed a benign abdomen. Positive bowel sounds. EXTREMITIES: No peripheral edema. SKIN: No new gross rash. LYMPHATICS: No peripheral lymphadenopathy. SUMMARY: A 63-year-old incarcerated gentleman, who presented here with severe hyponatremia in the context of compulsive water drinking. 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 Thank you for this consultation. We will follow with you. Job ID: [id number]
[2019-11-16] MEDS ORDERED: Metoprolol Tartrate 25 MG TAB PO SCH (21:00)
[2019-11-16] MEDS: Calcium Carbonate + Vit D 250 MG TAB PO SCH (21:15)
[2019-11-16] MEDS: DULoxetine 60 MG CAP PO SCH (21:16)
[2019-11-16 23:16] LABS: Anion Gap 11 mmol/L (10-20); BUN (Urea Nitrogen) 14 mg/dL (8.4-25.7); Calc. Creatinine Clearance 92 mL/min (70-130); Calcium 8.5 mg/dL (7.8-10.44); Carbon Dioxide 26 mmol/L (23-31); Chloride 98 mmol/L (98-107); Estimated GFR-MDRD 88; Glucose 113 mg/dL (80-115); Potassium 3.7 mmol/L (3.5-5.1); Sodium 131 mmol/L (136-145)
[2019-11-17 04:16] LABS: #Eosinphils 0.1 thou/uL (0.0-0.7); #Lymphocytes 1.1 thou/uL (1.20-3.40); #Monocytes 0.6 thou/uL (0.11-0.59); #Neutrophils 2.5 thou/uL (1.40-6.50); %Basophils 0.4 % (0.0-1.0); %Eosinophils 1.4 % (0.0-10.0); %Lymphocytes 26.3 % (21.0-51.0); %Monocytes 14.1 % (0.0-10.0); %Neutrophils 57.8 % (42.0-75.0); Hemoglobin 8.2 g/dL (14.0-18.0); Mean Corpuscular HGB CONC 32.3 g/dL (32.0-36.0); Mean Corpuscular Hemoglobin 23.6 pg (27.0-31.0); Mean Platelet Volume 8.8 fL (7.4-10.4); Platelet Count 291 thou/uL (130-400); RBC Distribution Width 16.8 % (11.5-14.5); Red Blood Cell (RBC) Count 3.48 mill/uL (4.70-6.10); White Blood Cell (WBC) Count 4.3 thou/uL (4.8-10.8)
[2019-11-17 04:22] LABS: ALT (SGPT) 29 U/L (8-55); AST (SGOT) 28 U/L (5-34); Albumin 3.6 g/dL (3.4-4.8); Alkaline Phosphatase 106 U/L (40-110); Anion Gap 11 mmol/L (10-20); BUN (Urea Nitrogen) 13 mg/dL (8.4-25.7); Bilirubin, Total 0.3 mg/dL (0.2-1.2); Calc. Creatinine Clearance 101 mL/min (70-130); Calcium 8.9 mg/dL (7.8-10.44); Carbon Dioxide 25 mmol/L (23-31); Chloride 99 mmol/L (98-107); Estimated GFR-MDRD Greater than 90; Globulin 3.6 g/dL (2.4-3.5); Glucose 105 mg/dL (80-115); Potassium 3.8 mmol/L (3.5-5.1); Protein, Total 7.2 g/dL (5.8-8.1); Sodium 131 mmol/L (136-145)
[2019-11-17] MEDS: hydrALAZINE 25 MG TAB PO SCH ×2 (07:30→20:35)
[2019-11-17] MEDS: Lisinopril 20 MG TAB PO SCH (08:44)
[2019-11-17] MEDS: carBAMazepine 200 MG TAB PO SCH ×3 (08:45→20:35)
[2019-11-17] MEDS: Amlodipine 10 MG TAB PO SCH (08:45)
[2019-11-17] MEDS: Loratadine 10 MG TAB PO SCH (08:45)
[2019-11-17] MEDS: Calcium Carbonate + Vit D 250 MG TAB PO SCH ×3 (08:46→20:34)
[2019-11-17] MEDS: Heparin 5,000 UNITS/ML VIAL SC SCH ×2 (08:52→20:36)
[2019-11-17] MEDS ORDERED: Iron Sucrose Complex 100 MG in Sodium Chloride 0.9% 100 ML IVPB SCH (12:15)
[2019-11-17] MEDS ORDERED: Iron, Sodium Ferric Gluconate 125 MG in Sodium Chloride 0.9% 100 ML IVPB SCH (14:00)
--- NOTE | 2019-11-17 16:32 | PDOC.HOSPP ---
- Objective Vital Signs & Weight: Vital Signs (12 hours) Temp Pulse Resp BP BP BP BP 11/17/19 15:47 98.5 F 98 24 H 158/70 H 11/17/19 11:00 98.4 F 95 15 141/66 H 11/17/19 10:56 98.4 F 95 15 141/66 H 11/17/19 07:30 97.8 F 99 17 165/77 H 165/77 H 11/17/19 04:51 89 191/84 H Pulse Ox 11/17/19 15:47 97 11/17/19 11:00 97 11/17/19 10:56 97 11/17/19 07:30 97 11/17/19 04:51 Weight Weight 162 lb 11.2 oz I&O: 11/16/19 11/17/19 11/18/19 06:59 06:59 06:59 Intake Total 730 Output Total 1850 Balance -1120 Result Diagrams: 11/17/19 03:35 11/17/19 03:35 Hospitalist ROS - Medication Medications: Active Medications Generic Name Dose Route Start Last Admin Trade Name Freq PRN Reason Stop Dose Admin Acetaminophen 650 mg 11/16/19 06:17 11/16/19 09:32 Tylenol PO 650 mg Q4H PRN Administration Headache/Fever/Mild Pain (1-3) Amlodipine Besylate 10 mg 11/17/19 09:00 11/17/19 08:45 Norvasc PO 10 mg DAILY MUSA Administration Calcium/Vitamin D 250 mg 11/16/19 21:00 11/17/19 15:45 Oscal + Vit D PO 250 mg TID MUSA Administration Carbamazepine 200 mg 11/16/19 08:00 11/17/19 15:46 Tegretol PO 200 mg BID-WM MUSA Administration Carbamazepine 400 mg 11/16/19 21:00 11/16/19 21:15 Tegretol PO 400 mg HS MUSA Administration Diltiazem HCl 30 mg 11/17/19 09:00 11/17/19 15:45 Cardizem PO 30 mg TID MUSA Administration Duloxetine HCl 60 mg 11/16/19 21:00 11/16/19 21:16 Cymbalta PO 60 mg HS MUSA Administration Heparin Sodium (Porcine) 5,000 units 11/16/19 09:00 11/17/19 08:52 Heparin SC 5,000 units BID MUSA Administration Hydralazine HCl 10 mg 11/16/19 06:13 11/17/19 04:51 Apresoline SLOW IVP 10 mg Q4H PRN Administration SBP Greater Than 180 Hydralazine HCl 50 mg 11/17/19 09:00 11/17/19 07:30 Apresoline PO 50 mg BID MUSA Administration Lisinopril 40 mg 11/17/19 09:00 11/17/19 08:44 Zestril PO 40 mg DAILY MUSA Administration Loratadine 10 mg 11/17/19 09:00 11/17/19 08:45 Claritin PO 10 mg DAILY MUSA Administration Pantoprazole Sodium 40 mg 11/16/19 21:00 11/17/19 08:45 Protonix PO 40 mg BID MUSA Administration Hosp A/P (1) HTN (hypertension) Code(s): I10 - ESSENTIAL (PRIMARY) HYPERTENSION Status: Acute Qualifiers: (2) Hyponatremia Code(s): E87.1 - HYPO-OSMOLALITY AND HYPONATREMIA Status: Acute (3) Sinus bradycardia Code(s): R00.1 - BRADYCARDIA, UNSPECIFIED Status: Acute - Plan evaluated pt's ekg which indicated junctional he is diltizam. On my evaluated he was SR. Pt denies any chest pain. curbside cardio who stated to change to po cardizem 30bid instead of 180mg SR. Also his sodium has improved. will put him on restriction.
--- NOTE | 2019-11-17 17:43 | PRG ---
DATE OF SERVICE: 11/17/2019 SUBJECTIVE: The patient was seen and examined, noted with the following vital signs. OBJECTIVE: VITAL SIGNS: Afebrile, temperature 98.5, pulse 98, respiratory rate of 24, saturation 97%, with a blood pressure of 158/70. HEENT: Unremarkable. Moist oral mucosa. No conjunctival injection or icterus. NECK: Supple. CARDIOVASCULAR: First and second heart sounds were heard. DIGESTIVE SYSTEM: Revealed a benign abdomen with positive bowel sounds. EXTREMITIES: No peripheral edema. SKIN: No new gross rash. LYMPHATICS: No peripheral lymphadenopathy. LABORATORY STUDIES: Sodium has gone up to 131. IMPRESSION: Hyponatremia in the context of compulsive water drinking. PLAN: 1. Continue with restricted water intake. 2. Further management to be dependent on the clinical course. Job ID: [id number]
[2019-11-17] MEDS: DULoxetine 60 MG CAP PO SCH (20:35)
[2019-11-18 07:12] LABS: #Basophils 0.1 thou/uL (0.0-0.2); #Eosinphils 0.1 thou/uL (0.0-0.7); #Lymphocytes 1.4 thou/uL (1.20-3.40); #Monocytes 0.6 thou/uL (0.11-0.59); #Neutrophils 2.3 thou/uL (1.40-6.50); %Basophils 1.4 % (0.0-1.0); %Eosinophils 1.5 % (0.0-10.0); %Monocytes 12.8 % (0.0-10.0); %Neutrophils 53.4 % (42.0-75.0); Hemoglobin 8.3 g/dL (14.0-18.0); Mean Platelet Volume 8.4 fL (7.4-10.4); Platelet Count 326 thou/uL (130-400); RBC Distribution Width 17.5 % (11.5-14.5); Red Blood Cell (RBC) Count 3.59 mill/uL (4.70-6.10); White Blood Cell (WBC) Count 4.4 thou/uL (4.8-10.8)
[2019-11-18] MEDS: (Triamcinolone Acetonide [Triamcinolone Acetonide 0.1% Lotion] TOP SCH ×2 (07:17→07:20)
[2019-11-18 07:36] LABS: Anion Gap 10 mmol/L (10-20); BUN (Urea Nitrogen) 10 mg/dL (8.4-25.7); Calc. Creatinine Clearance 98 mL/min (70-130); Calcium 8.8 mg/dL (7.8-10.44); Carbon Dioxide 28 mmol/L (23-31); Chloride 98 mmol/L (98-107); Estimated GFR-MDRD Greater than 90; Glucose 107 mg/dL (80-115); Potassium 3.8 mmol/L (3.5-5.1); Sodium 132 mmol/L (136-145)
[2019-11-18 07:51] VITALS: TEMP 98.5
[2019-11-18] MEDS: carBAMazepine 200 MG TAB PO SCH ×2 (09:24→16:12)
[2019-11-18] MEDS: Amlodipine 10 MG TAB PO SCH (09:24)
[2019-11-18] MEDS: Calcium Carbonate + Vit D 250 MG TAB PO SCH ×2 (09:25→16:11)
[2019-11-18] MEDS: Heparin 5,000 UNITS/ML VIAL SC SCH (09:25)
[2019-11-18] MEDS: Lisinopril 20 MG TAB PO SCH (09:26)
[2019-11-18] MEDS: hydrALAZINE 25 MG TAB PO SCH ×2 (09:26→16:11)
[2019-11-18] MEDS: Loratadine 10 MG TAB PO SCH (09:26)
--- NOTE | 2019-11-18 12:41 | PQF ---
CLINICAL DOCUMENTATION IMPROVEMENT CLARIFICATION FORM: ICD-10 Updated PLEASE DO AN ADDENDUM TO THE PROGRESS NOTE WITH ANY DOCUMENTATION UPDATES OR ADDITIONS AND CARRY THROUGH TO DC SUMMARY. THANK YOU. DATE: 11/18/19 ATTN: DR. JOHNSON Please exercise your independent, professional judgment in responding to the clarification form. Clinical indicators are provided on the bottom of this form for your review Please check appropriate box(s) to clarify if the following diagnosis has been ruled in or ruled out: "GI BLEED" [ ] Ruled in diagnosis [ ] Continue to treat [ ] Resolved [ ] Ruled out diagnosis [ ] Cannot rule out diagnosis [ x ] Other diagnosis ___has a hx of gi bleed was on ibuprofen was given one unit of blood and his hh was stable which i documented. so no gi i bleed. __ [ ] Unable to determine In addition, please specify: Present on Admission (POA): [ ] Yes [ ] No [ ] Unable to determine For continuity of documentation, please document condition throughout progress notes and discharge summary. Thank You. CLINICAL INDICATORS - SIGNS / SYMPTOMS / LABS / RESULTS AND LOCATION IN MR ER NOTE: "SEVERE ANEMIA REQUIRING TRANSFUSION" "GI BLEED" HGN 11/15: 6.8 / HCT 21.4 HGN 11/16: 8.2 / HCT 25.4 RISKS: H/O GASTRIC ULCER (H&P 11/16) H/O CHRONIC NONSTEROIDAL ANTI-INFLAMMATORY DRUG USE (H&P 11/16) TREATMENT: IV PANTOPRAZOLE (ER) PROTONIX PO (11/16-PRESENT) FERROUS SULFATE (HOME MED) OMEPRAZOLE (HOME MED) SERIAL LABS BLOOD TRANSFUSION (11/16) [employer] Win[employer] Viewer (This form is maintained as a part of the permanent medical record) 2014 [employer]. All Rights Reserved [email or web address] Office: [phone] [facility]
[2019-11-18 16:18] VITALS: BP 173/82
--- NOTE | 2019-11-18 17:07 | PRG ---
DATE OF SERVICE: 11/18/2019 SUBJECTIVE: The patient noted with the following vital signs. OBJECTIVE: VITAL SIGNS: Temperature 98.5, pulse 87, respiratory rate of 20, O2 saturations are 97%, and blood pressure 173/82. HEENT: Unremarkable. CARDIOVASCULAR SYSTEM: First and second heart sounds were heard. RESPIRATORY SYSTEM: Clear to auscultation. DIGESTIVE SYSTEM: Revealed a benign abdomen. Positive bowel sounds. EXTREMITIES: No peripheral edema. SKIN: No new gross rash. LYMPHATICS: No peripheral lymphadenopathy. LABORATORY INVESTIGATION: Sodium has gone up to 133. IMPRESSION: Hyponatremia, which is improved. PLAN: From the renal standpoint, the patient is due for discharge. Job ID: [id number]
--- NOTE | 2019-11-19 02:49 | DIS ---
DATE OF ADMISSION: 11/16/2019 DATE OF DISCHARGE: 11/18/2019 DISCHARGE DIAGNOSES: As of the followin. Sinus bradycardia. 2. Hyponatremia. 3. Elevated blood pressure. 4. Anemia. HOSPITAL COURSE: Patient is a 63-year-old male, who has a history of nonbleeding ulcer and AV malformation and a history of dyspnea, who came to the hospital with significant amount of generalized weakness and was found to be hyponatremic. He was put on a fluid restriction. He was seen by Nephrology. His sodium improved dramatically. Patient initially was given 3% normal saline, given his symptoms. Patient also received 1 unit of PRBCs and he stated that he was taking NSAIDs after he was discharged last time during previous hospitalization. I have told him to not take any more NSAIDs and I have also written this in his discharge instructions. He was given 1 unit and after that, his H and H were stable for the next couple of days. At this time, GI was not consulted and patient was then discharged home. His hyponatremia has resolved. His H and H have been stable. Also, I have advised him against any sort of NSAIDs. His blood pressure was significantly elevated. This is because he was on Cardizem 180 mg sustained release and when he came into the hospital, he was found to be in sinus chuck and there was one EKG that indicated junctional rhythm. I did [facility] who stated to change his Cardizem to a scheduled dosing and nonsustained release. At this time, initially I did Cardizem 30 mg twice a day and then increased to 30 mg 3 times a day and monitored him overnight and he had no events. His heart rate was sinus rhythm. Patient will be discharged home. He will follow up with his provider in the assisted. His home medications will be; 1. Norvasc 10 mg daily. 2. Diltiazem 30 mg t.i.d. 3. Carbamazepine 400 mg at bedtime. 4. Protonix 20 mg twice a day. 5. Lisinopril 40 mg daily. 6. Duloxetine 60 mg at bedtime. 7. Hydrochlorothiazide 50 mg t.i.d. PHYSICAL EXAMINATION: VITAL SIGNS: Temperature 98.5, 86, 14, 97% on room air, and his blood pressure is 171/89. GENERAL: He is awake, alert, and oriented x3. Does not appear in distress. CV: S1, S2 present. No murmurs, rubs, or gallops. ABDOMEN: Soft and nontender. Again, patient is completely asymptomatic. He will be discharged back to the care home and he will follow up with his primary care doctor. Job ID: [id number]
== END 2019-11-18 19:30 | disposition home or self-care (01) | DRG 812 ==
LOC: ERS 22:23 → EEVIPCON 22:23 → ERHOLD 11-16 04:08 → 2NO 11-16 16:10
PROVIDERS: ADMIT Internal Medicine; ATTEND Internal Medicine
PROC: 30233N1 Transfusion of Nonautologous Red Blood Cells into Peripheral Vein, Percutaneous Approach (ICD-10-PCS; principal; 2019-11-16)
DX: D64.9 Anemia, unspecified (principal); E87.1 Hypo-osmolality and hyponatremia; N17.9 Acute kidney failure, unspecified; R00.1 Bradycardia, unspecified; I10 Essential (primary) hypertension; J44.9 Chronic obstructive pulmonary disease, unspecified; B19.20 Unspecified viral hepatitis C without hepatic coma; F32.9 Major depressive disorder, single episode, unspecified; F12.10 Cannabis abuse, uncomplicated; K21.9 Gastro-esophageal reflux disease without esophagitis; K25.9 Gastric ulcer, unspecified as acute or chronic, without hemorrhage or perforation; F41.9 Anxiety disorder, unspecified; Z89.612 Acquired absence of left leg above knee
CPT/HCPCS: 36415; 36430; 80048; 80053; 80306; 82607; 82728; 82746; 83540; 83550; 83735; 83930; 83935; 84300; 84443; 84484; 85014; 85018; 85025; 86850; 86900; 86901; 93005; C9113; J0360; J0461; J1644; J2916; J3490; J7131; P9016

== ENCOUNTER 2019-11-27 18:47 | Inpatient (IN) | payer OTHER ==
[2019-11-27 21:05] LABS: Anion Gap 13 mmol/L (10-20); BUN (Urea Nitrogen) 12 mg/dL (8.4-25.7); Calc. Creatinine Clearance 0 mL/min (70-130); Calcium 9.3 mg/dL (7.8-10.44); Carbon Dioxide 24 mmol/L (23-31); Chloride 92 mmol/L (98-107); Estimated GFR-MDRD 86; Glucose 130 mg/dL (80-115); Potassium 4.6 mmol/L (3.5-5.1); Sodium 124 mmol/L (136-145)
[2019-11-27] MEDS ORDERED: Ondansetron ODT 4 MG TAB PO PRN (21:54)
[2019-11-27 22:04] LABS: Bilirubin Negative (Negative); Blood, Urine Negative (Negative); Clarity Clear (Clear); Glucose, Urine (Dipstick) Normal (Negative); Leukocyte Negative Leu/uL (Negative); Nitrite Negative (Negative); Protein, Urine (Dipstick) 20 mg/dL (Neg-Trace); Urobilinogen Normal mg/dL (Less than 2)
[2019-11-27 22:25] LABS: Creatinine, Urine 24.82 mg/dL (63-166)
--- NOTE | 2019-11-27 22:43 | HP ---
CHIEF COMPLAINT: Rash, right wrist. HISTORY OF PRESENT ILLNESS: Mr. Yarbrough is a 64-year-old male with past medical history of hepatitis C, hyponatremia, hypertension, osteomyelitis, left above-knee amputation, COPD, among others, was brought to the emergency room for evaluation of right wrist redness, swelling, and rash. The patient reports that he was previously hospitalized within the last month for hyponatremia. The patient denies fevers, chills. The patient has swelling and redness of the right wrist, but the patient is able to move his right wrist without limitation. The patient said that he took an antibiotic a few days ago oral, after that he is having rash all over his body. No fever. No chills. No abdominal pain. No nausea. No vomiting. The patient denied being on diuretics. Workup in the emergency room, the patient had a low sodium of 124. The patient was started on IV antibiotic. The patient is being admitted to hospital for further management. PAST MEDICAL HISTORY: As mentioned above in the history of present illness. PAST SURGICAL HISTORY: 1. Left above-knee amputation. 2. Right wrist surgery in September 2019. PAST PSYCHIATRIC HISTORY: Persistent depressive disorder. SOCIAL HISTORY: Denies alcohol drinking. History of marijuana abuse. FAMILY HISTORY: Reviewed and noncontributory. ALLERGIES: NO KNOWN ALLERGIES. HOME MEDICATIONS: Please see home medication reconciliation form for updated medications. REVIEW OF SYSTEMS: Review of 14 systems negative except what is mentioned in the history of present illness. PHYSICAL EXAMINATION: GENERAL: The patient is awake, alert, does not appear to be in acute distress. VITAL SIGNS: Blood pressure 153/85, pulse is 80, respiratory rate is 16, temperature 98.3. HEAD AND NECK: Normocephalic, atraumatic. NECK: Supple. CHEST: Fair bilateral air entry. HEART: S1, S2. Regular. ABDOMEN: Soft, nontender. Bowel sounds present. NEUROLOGIC: Awake, alert, oriented x3. PSYCHIATRIC: Normal mood. EXTREMITIES: No clubbing, no cyanosis. Right wrist, red and swollen. SKIN: Rash all over the body. ASSESSMENT: 1. Acute hyponatremia. 2. Skin rash ?etiology. 3. Cellulitis, right wrist/possible infected hardware. 4. Hepatitis C. 5. Hypertension. 6. Left above-knee amputation status. 7. History of osteomyelitis. 8. Chronic obstructive pulmonary disease. PLAN: 1. Admit. 2. Start the patient on IV antibiotics. 3. Consider consulting Infectious Disease and Orthopedics for evaluation and further recommendations in a.m. 4. IV fluid hydration. 5. Isolation precautions for now until patient reassessed in a.m. and consult Infectious Disease. 6. Reconcile home medications. 7. DVT prophylaxis as appropriate. 8. Expected length of stay, 2 midnights or more. Job ID: [id number]
[2019-11-27] MEDS ORDERED: Ondansetron ODT 4 MG TAB SL PRN (22:44)
[2019-11-27] MEDS ORDERED: Ondansetron PF 4 MG/2 ML Vial IVP PRN (22:44)
[2019-11-27] MEDS ORDERED: Acetaminophen 325 MG TAB PO PRN (22:44)
[2019-11-27] MEDS: Acetaminophen 325 MG TAB PO PRN (23:15)
[2019-11-27] MEDS: Clindamycin/D5W 600 MG in Premix Bag 1 BAG IVPB SCH (23:15)
[2019-11-27] MEDS: Sodium Chloride 0.9% 1,000 ML IV SCH (23:17)
[2019-11-27 23:28] VITALS: BMI 25.8
[2019-11-28] MEDS ORDERED: Mag-Al 1200 mg/1200 mg/30 ML UDCUP PO PRN (01:03)
[2019-11-28] MEDS ORDERED: Amlodipine 10 MG TAB PO SCH (04:30)
[2019-11-28] MEDS: Clindamycin/D5W 600 MG in Premix Bag 1 BAG IVPB SCH ×4 (05:04→23:31)
[2019-11-28 05:42] LABS: #Eosinphils 0.1 thou/uL (0.0-0.7); #Monocytes 0.4 thou/uL (0.11-0.59); #Neutrophils 1.9 thou/uL (1.40-6.50); %Basophils 0.3 % (0.0-1.0); %Eosinophils 2.1 % (0.0-10.0); %Lymphocytes 29.4 % (21.0-51.0); %Monocytes 10.8 % (0.0-10.0); %Neutrophils 57.4 % (42.0-75.0); Hemoglobin 9.1 g/dL (14.0-18.0); Mean Corpuscular HGB CONC 32.2 g/dL (32.0-36.0); Mean Corpuscular Hemoglobin 24.7 pg (27.0-31.0); Mean Corpuscular Volume 76.8 fL (78.0-98.0); Mean Platelet Volume 9.5 fL (7.4-10.4); Platelet Count 212 thou/uL (130-400); RBC Distribution Width 20.8 % (11.5-14.5); Red Blood Cell (RBC) Count 3.66 mill/uL (4.70-6.10); White Blood Cell (WBC) Count 3.3 thou/uL (4.8-10.8)
[2019-11-28 05:59] LABS: Anion Gap 13 mmol/L (10-20); BUN (Urea Nitrogen) 11 mg/dL (8.4-25.7); Calc. Creatinine Clearance 107 mL/min (70-130); Calcium 8.8 mg/dL (7.8-10.44); Carbon Dioxide 24 mmol/L (23-31); Chloride 94 mmol/L (98-107); Estimated GFR-MDRD Greater than 90; Glucose 105 mg/dL (80-115); Potassium 4.5 mmol/L (3.5-5.1); Sodium 126 mmol/L (136-145)
[2019-11-28] MEDS: Sodium Chloride 0.9% 1,000 ML IV SCH (11:08)
[2019-11-28] MEDS ORDERED: PROVENTIL INHALER 6.7 G (200 INHALATIONS) INH PRN (12:10)
--- NOTE | 2019-11-28 13:15 | PDOC.HOSPP ---
- Subjective Encounter Date: 11/28/19 Encounter Time: 10:00 Subjective: has pain over right wrist with swelling and redness, also has pustules over his torso and face no sob or chest pain - Objective Vital Signs & Weight: Vital Signs (12 hours) Temp Pulse Resp BP Pulse Ox 11/28/19 10:41 97.7 F 83 14 175/82 H 92 L 11/28/19 09:18 98.4 F 87 16 168/76 H 99 11/28/19 08:20 99 11/28/19 05:04 86 11/28/19 03:42 98.4 F 86 16 171/89 H 97 Weight Weight 174 lb I&O: 11/27/19 11/28/19 11/29/19 06:59 06:59 06:59 Intake Total 1320 Output Total 1710 Balance -390 Result Diagrams: 11/28/19 05:11 11/28/19 05:11 Hospitalist ROS - Medication Medications: Active Medications Generic Name Dose Route Start Last Admin Trade Name Freq PRN Reason Stop Dose Admin Acetaminophen 650 mg 11/27/19 21:54 11/27/19 23:15 Tylenol PO 650 mg Q4H PRN Administration Headache/Fever/Mild Pain (1-3) Sodium Chloride 1,000 mls @ 75 mls/hr 11/27/19 22:00 11/28/19 11:08 Normal Saline 0.9% IV 1,000 mls .[id number] MUSA Administration Clindamycin Phosphate/Dextrose 50 mls @ 100 mls/hr 11/27/19 23:59 11/28/19 11 :08 600 mg/ Device IVPB 50 mls Q6HR MUSA Administration Pantoprazole Sodium 40 mg 11/28/19 12:45 11/28/19 13:11 Protonix PO 11/28/19 14:45 40 mg NOW MUSA Administration - Exam General Appearance: awake alert Eye: PERRL, anicteric sclera ENT: no oropharyngeal lesions, moist mucosa Neck: supple, no JVD Heart: RRR, no murmur Respiratory: no wheezes, no rales Gastrointestinal: soft, non-tender, non-distended, normal bowel sounds Extremities - other findings: right wrist has edema, erythema and tenderness++ Neurological: cranial nerve grossly intact, no focal deficits Hosp A/P (1) Septic arthritis of right wrist Code(s): M00.9 - PYOGENIC ARTHRITIS, UNSPECIFIED Status: Acute Qualifiers: Septic arthritis organism: due to unspecified organism Qualified Code(s): M00.9 - Pyogenic arthritis, unspecified (2) Left above-knee amputee Code(s): Z89.612 - ACQUIRED ABSENCE OF LEFT LEG ABOVE KNEE Status: Chronic (3) Anemia Code(s): D64.9 - ANEMIA, UNSPECIFIED Status: Chronic Qualifiers: Anemia type: unspecified type Qualified Code(s): D64.9 - Anemia, unspecified (4) COPD (chronic obstructive pulmonary disease) Status: Chronic Qualifiers: COPD type: unspecified COPD Qualified Code(s): J44.9 - Chronic obstructive pulmonary disease, unspecified (5) HTN (hypertension) Code(s): I10 - ESSENTIAL (PRIMARY) HYPERTENSION Status: Chronic Qualifiers: (6) Hyponatremia Code(s): E87.1 - HYPO-OSMOLALITY AND HYPONATREMIA Status: Acute - Plan is on clindamycin, add zosyn, await ortho opinion has significant swelling, erythema and tenderness to right wrist (previously operated in [place] in 10/19) gentle iv hydration, nebs hemostable
--- NOTE | 2019-11-28 13:16 | CON ---
DATE OF CONSULTATION: 11/28/2019 REQUESTING PHYSICIAN: Ciro Gunn DO CONSULTING PHYSICIAN: Serafin Hawk MD REASON FOR CONSULTATION: Right wrist swelling. BRIEF CLINICAL HISTORY: Carlos is a 64-year-old inmate, who was admitted after being transferred from [facility] for evaluation of right wrist swelling, which has been present progressive for the last week or two. Apparently, the patient had a proximal row carpectomy performed at [facility] a few weeks ago. [facility] after several admissions here at [place] for sinus bradycardia, metabolic disturbances, hypertension as well as anemia. He has had progressive wrist pain for a week and half now. He has had significant swelling and erythema. He was started on oral antibiotics at the [facility] and then after failing outpatient management, he was transferred to [facility] and I believe he has received IV antibiotics. Currently, clindamycin is running. Plain radiographs have been obtained. His white count is 3.3 and he has not been labile or had any other constitutional symptoms. No fevers, nausea, or vomiting. PHYSICAL EXAMINATION: VITAL SIGNS: Temperature 98.4, pulse 87, respiratory rate 16 and nonlabored, O2 saturation 99% on room air, blood pressure is 160/76. GENERAL: He is alert, oriented, responsive, appropriate with examiner. EXTREMITIES: Visual inspection of the right upper extremity demonstrates to have fullness dorsally. Healed scar is noted. There are no acute changes or concerns with skin closure. I do not see any abscess formation. It is full, but again reproducible discomfort is noted with palpation directly, but again no fluctuance is noted. Range of motion is limited as expected for a proximal row carpectomy. He has adequate digital excursion. No purulence or drains identified. SKIN: Appears to be intact. IMPRESSION: Right wrist proximal row carpectomy, but still with retained function. Clinically, I do not see any evidence or need for incision, drainage, washout, or exploration at this point. We will continue antibiotics for now. Consider persistent osteomyelitis at the radial styloid based on radiographs. But this may be something that should be appropriately returned to the regional treating facility, which he may require explantation. But for now, no need for surgical intervention. Continue to treat with IV antibiotics. We will follow the patient during his convalescence here. Job ID: [id number]
[2019-11-28] MEDS ORDERED: Piperacillin/Tazobactam 3.375 GM in Sodium Chloride 0.9% 100 ML IVPB SCH (14:00)
[2019-11-28] MEDS: hydrALAZINE 25 MG TAB PO SCH ×2 (14:13→19:31)
[2019-11-28] MEDS ORDERED: valACYclovir 500 MG TAB PO SCH (15:45)
[2019-11-28] MEDS: cefTRIAXone\\ROCEPHIN 1 GM in Sodium Chloride 0.9% 100 ML IVPB SCH (15:50)
[2019-11-28] MEDS: Acetaminophen 325 MG TAB PO PRN (17:17)
--- NOTE | 2019-11-28 18:01 | CON ---
DATE OF CONSULTATION: 11/28/2019 REASON FOR CONSULTATION: Right wrist inflammatory process and skin lesions. HISTORY OF PRESENT ILLNESS: A 64-year-old with history of chronic hepatitis C, which has not yet been treated; COPD; hypertension; and prior left AKA, who is an inmate at [facility] and a few weeks ago had a procedure to repair a scaphoid, degenerative disease of the right wrist. Over the past few days, he noticed development of inflammatory changes in the right wrist with swelling. A few days before that, he had noticed pustular papular lesions throughout his body and anyway he was given oral antimicrobial therapy with persistence of inflammatory change, although there were some improvement in the erythema. He was then transferred over here and x- ray showed effusion at the site of the hardware from the procedure. His vital signs are essentially normal except for mild elevation in systolic pressure. He had normal temperature. Currently, Mr. Yarbrough is awake. He denies any headaches, visual symptoms, sore throat, odynophagia, or dysphagia. No back pain. No cough or sputum production. No abdominal pain. Voiding without difficulty. No diarrhea or bleeding. The right wrist has improved since admission. PAST MEDICAL HISTORY: Chronic hep C untreated yet, left AKA, scapholunate degenerative disease, status post carpectomy a few weeks ago, depression. SOCIAL HISTORY: No smoking history. FAMILY HISTORY: Noncontributory. He is currently an inmate at [facility]. ALLERGIES: NONE. CURRENT MEDICATIONS: 1. Tylenol. 2. Maalox. 3. Proventil. 4. DuoNeb. 5. Norvasc. 6. Tegretol. 7. Clindamycin. 8. Cymbalta. 9. Apresoline. 10. Zestril. 11. Claritin. 12. Zosyn. PHYSICAL EXAMINATION: VITAL SIGNS: T-max 98.4, blood pressure 170/80, pulse 83, respirations 14, O2 saturation 92% to 99%. SKIN: Shows multiple pustular papular lesions spread throughout his body skin including head, trunk, chest, abdomen, and proximal aspect of the appendicular structures. No lymphadenopathy. HEENT: Ocular movements conjugate. Oral cavity with quite a few teeth in place with moderate decay and gum disease. NECK: Supple. No jugular vein distention. LUNGS: Clear to auscultation and percussion. HEART: S1 and S2. Regular rate. No S3 or S4. ABDOMEN: Soft, not distended or tender. No ascites. : No bladder distention. EXTREMITIES: No joint inflammatory activity outside the area of involvement. The right wrist is moderately swollen. The incision of the surgical procedure done elsewhere has completely healed. There is no erythema or drainage. There is mild tenderness. Range of motion is fairly decent. The pulses are normal in lower extremities. Cognitive function appears to be intact. LABORATORY DATA: Urinalysis was normal. White cell count 3.3, hemoglobin 9.1, platelets 212, 57% neutrophils. Sodium 124, creatinine 0.9. Blood culture, no growth. A wrist x-ray with erosive changes in distal articular surface of radius with large joint effusion, carpectomy changes, proximal carpal row with artificial lunate proximal capitate. ASSESSMENT: 1. Chronic hepatitis C untreated. 2. Chronic obstructive pulmonary disease. 3. Scapholunate degenerative disease, status post carpectomy with foreign body and now inflammatory changes which seemed to have responded to early antimicrobial therapy. 4. Diffuse pustular papular rash. DISCUSSION: The patient seems to have 2 different separate processes. The first one is the possible postop complication following the surgical procedure to the right wrist until proven otherwise. Ideally, one would like to obtain a sample of the fluid and submit for cultures to identify the organism involved in this process. It seems to have fluid within the joint. Regarding the pustular lesions, this could represent disseminated herpes simplex or herpes zoster infection. We will submit a PCR for identification. Start Valtrex 1 g q.8 hours. The other possibility would be cryoglobulinemia with that appears to be less likely since in cryoglobulinemia, the rash is mostly distributed in the distal appendicular structures skin. If no sampling is obtained from the right wrist for cultures, then the treatment would have to be empiric addressing mostly Staphylococcus aureus gram-negative rods. I think a combination of Rocephin and vancomycin would be acceptable. If he were to be truly infected, then he would have to have the hardware removed and washout of the joint performed. This would be followed by protracted antimicrobial therapy, part of it IV and part of it p.o. Job ID: [id number] [facility]
[2019-11-28] MEDS: valACYclovir 500 MG TAB PO SCH (21:01)
[2019-11-28] MEDS: DULoxetine 60 MG CAP PO SCH (21:01)
[2019-11-28] MEDS: carBAMazepine 200 MG TAB PO SCH (21:01)
[2019-11-28] MEDS ORDERED: hydrALAZINE 20 MG/ML VIAL SLOW IVP PRN (22:32)
--- NOTE | 2019-11-28 23:50 | CON ---
DATE OF CONSULTATION: CONSULTING PHYSICIAN: Diana Stapleton MD REQUESTING PHYSICIAN: Dr. Aranda. REASON FOR CONSULTATION: Hyponatremia. IMPRESSION: Hyponatremia. This is likely in the context of dilutional hyponatremia from compulsive drinking. PLAN: 1. Discontinue current IV fluid. 2. Restrict free water intake to 1.5 L in 24 hours. 3. Further management to be dependent on the clinical course. HISTORY OF PRESENT ILLNESS: History is that of 64-year-old incarcerated gentleman, known to me from previous hospitalization when he presented with worse hyponatremia. Clinical evaluation identified. 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 The patient presented at this time around with rash involving the right wrist and noted with a sodium of 124, caused the need for Renal consultation. PAST MEDICAL HISTORY: Significant for hepatitis C, hyponatremia, hypertension, osteomyelitis, and COPD. MEDICATIONS: Reviewed and as documented on [employer]. ALLERGIES: NO KNOWN DRUG ALLERGIES. SOCIAL HISTORY: The patient was incarcerated with alcohol with a remote history of marijuana use. FAMILY HISTORY: Not significantly related to presenting illness. REVIEW OF SYSTEMS: As documented in the body of history. All the other systems were reviewed and found not to be significantly related to presenting illness. PHYSICAL EXAMINATION: GENERAL: The patient was found not to be in any obvious distress. Noted with the following vital signs. VITAL SIGNS: Afebrile, temperature 98.4, pulse 84, respiratory rate of 16, O2 saturation is 99%, and blood pressure 162/82. HEENT: Unremarkable. CARDIOVASCULAR: First and second heart sounds were heard. RESPIRATORY SYSTEM: Clear to auscultation. EXTREMITIES: No peripheral edema. SKIN: No new gross rash. LYMPHATICS: No peripheral lymphadenopathy. SUMMARY: A 64-year-old incarcerated gentleman who presented here with right wrist rash, noted to have low sodium level. Thank you for this consultation. We will follow with you. Job ID: [id number]
[2019-11-29] MEDS: valACYclovir 500 MG TAB PO SCH ×3 (05:43→21:14)
[2019-11-29] MEDS: Clindamycin/D5W 600 MG in Premix Bag 1 BAG IVPB SCH ×3 (05:43→17:46)
[2019-11-29] MEDS: hydrALAZINE 25 MG TAB PO SCH ×3 (09:07→21:14)
[2019-11-29] MEDS: Amlodipine 10 MG TAB PO SCH (09:08)
[2019-11-29] MEDS: Loratadine 10 MG TAB PO SCH (09:08)
[2019-11-29] MEDS: Lisinopril 20 MG TAB PO SCH (09:08)
[2019-11-29] MEDS: Acetaminophen 325 MG TAB PO PRN ×2 (13:42→21:20)
--- NOTE | 2019-11-29 14:07 | PDOC.HOSPP ---
- Subjective Encounter Date: 11/29/19 Encounter Time: 09:00 Subjective: feels better, right wrist is better - Objective Vital Signs & Weight: Vital Signs (12 hours) Temp Pulse Resp BP Pulse Ox 11/29/19 11:20 98.4 F 93 18 149/75 H 97 11/29/19 08:15 98.3 F 90 20 156/85 H 98 11/29/19 04:51 98.3 F 95 16 159/89 H 99 Weight Weight 169 lb 6 oz I&O: 11/28/19 11/29/19 11/30/19 06:59 06:59 06:59 Intake Total 1320 2550 Output Total 1710 3520 Balance -390 970 Result Diagrams: 11/28/19 05:11 11/28/19 05:11 Hospitalist ROS - Medication Medications: Active Medications Generic Name Dose Route Start Last Admin Trade Name Freq PRN Reason Stop Dose Admin Acetaminophen 650 mg 11/27/19 21:54 11/28/19 17:17 Tylenol PO 650 mg Q4H PRN Administration Headache/Fever/Mild Pain (1-3) Amlodipine Besylate 10 mg 11/29/19 09:00 11/29/19 09:08 Norvasc PO 10 mg DAILY MUSA Administration Carbamazepine 400 mg 11/28/19 21:00 11/28/19 21:01 Tegretol PO 400 mg HS MUSA Administration Diltiazem HCl 180 mg 11/29/19 09:00 11/29/19 09:08 Cardizem Cd PO 180 mg DAILY MUSA Administration Duloxetine HCl 60 mg 11/28/19 21:00 11/28/19 21:01 Cymbalta PO 60 mg HS MUSA Administration Hydralazine HCl 50 mg 11/28/19 15:00 11/29/19 09:07 Apresoline PO 50 mg TID MUSA Administration Hydralazine HCl 10 mg 11/28/19 22:32 11/28/19 23:32 Apresoline SLOW IVP 10 mg Q4H PRN Administration SBP > 180 and HR < 70 Clindamycin Phosphate/Dextrose 50 mls @ 100 mls/hr 11/27/19 23:59 11/29/19 12 :29 600 mg/ Device IVPB 50 mls Q6HR MUSA Administration Ceftriaxone Sodium 1 gm/ 100 mls @ 200 mls/hr 11/28/19 16:00 11/28/19 15:50 Sodium Chloride IVPB 100 mls Q24HR MUSA Administration Lisinopril 40 mg 11/29/19 09:00 11/29/19 09:08 Zestril PO 40 mg DAILY MUSA Administration Loratadine 10 mg 11/29/19 09:00 11/29/19 09:08 Claritin PO 10 mg DAILY MUSA Administration Pantoprazole Sodium 40 mg 11/29/19 09:00 11/29/19 09:08 Protonix PO 40 mg DAILY MUSA Administration Valacyclovir HCl 1,000 mg 11/28/19 22:00 11/29/19 05:43 Valtrex PO 1,000 mg Q8HR MUSA Administration - Exam General Appearance: awake alert Eye: PERRL, anicteric sclera ENT: no oropharyngeal lesions, moist mucosa Neck: supple, no JVD Heart: RRR, no murmur Respiratory: no wheezes, no rales Gastrointestinal: soft, non-tender, non-distended, normal bowel sounds Extremities: no cyanosis, no edema Neurological: cranial nerve grossly intact, no focal deficits Psychiatric: normal affect, A&O x 3 Hosp A/P (1) Hyponatremia Code(s): E87.1 - HYPO-OSMOLALITY AND HYPONATREMIA Status: Acute (2) Disseminated herpes zoster Code(s): B02.7 - DISSEMINATED ZOSTER Status: Suspected (3) Left above-knee amputee Code(s): Z89.612 - ACQUIRED ABSENCE OF LEFT LEG ABOVE KNEE Status: Chronic (4) Anemia Code(s): D64.9 - ANEMIA, UNSPECIFIED Status: Chronic Qualifiers: Anemia type: unspecified type Qualified Code(s): D64.9 - Anemia, unspecified (5) COPD (chronic obstructive pulmonary disease) Status: Chronic Qualifiers: COPD type: unspecified COPD Qualified Code(s): J44.9 - Chronic obstructive pulmonary disease, unspecified (6) HTN (hypertension) Code(s): I10 - ESSENTIAL (PRIMARY) HYPERTENSION Status: Chronic Qualifiers: - Plan is on clindamycin, add ceftriaxone, per ortho there is no signs of septic arthritis. his swelling, erythema and tenderness to right wrist (previously operated in [place] in 10/19) is receding well. nebs, valtrex q8h. Pt is suspected to have disseminated zoster or simplex per , his generalized skin lesions are crusting, await lesion pcr for simplex/zoster results. hemostable
--- NOTE | 2019-11-29 15:12 | PRG ---
DATE OF SERVICE: 11/29/2019 SUBJECTIVE: Carlos is a 64-year-old male, we took on consult 2 days ago for swelling of the right wrist. He denies any fevers, nausea, vomiting, or increase in pain, and in fact, his pain has gotten better. He had an original proximal row carpectomy done at [facility]. He is currently an inmate. He was admitted for metabolic reasons and our service was consulted to follow this wrist, which they had concerns of infection. He is getting better. PHYSICAL EXAMINATION: VITAL SIGNS: Temperature 98.4, pulse 93, respiratory rate 18, blood pressure 149/75. GENERAL: He is alert, responsive and appropriate with examiner. White count is 3.3 from yesterday. Incision looks clean, limited range of motion, but as expected for his surgery. No erythema is noted and no fluctuance. Nontender to palpation. IMPRESSION: A 64-year-old male, status post proximal row right wrist carpectomy with prosthetic implant. PLAN: Continue current care. I recommend he return to his original treating surgeon and give consideration in chronic suppression with antibiotics if needed. Job ID: [id number]
[2019-11-29] MEDS: cefTRIAXone\\ROCEPHIN 1 GM in Sodium Chloride 0.9% 100 ML IVPB SCH (16:12)
[2019-11-29] MEDS: carBAMazepine 200 MG TAB PO SCH (21:14)
[2019-11-29] MEDS: DULoxetine 60 MG CAP PO SCH (21:14)
--- NOTE | 2019-11-29 23:44 | PRG ---
DATE OF SERVICE: 11/29/2019 SUBJECTIVE: The patient is seen and examined. Noted with the following vital signs. OBJECTIVE: VITAL SIGNS: Afebrile, temperature 98.4, pulse 77, respiratory rate 16, O2 saturation of 99%, blood pressure 144/60. HEENT: Examination unremarkable. CARDIOVASCULAR SYSTEM: First and second heart sounds were heard. RESPIRATORY SYSTEM: Clear to auscultation. DIGESTIVE SYSTEM: Revealed a benign abdomen. EXTREMITIES: No peripheral edema. SKIN EXAMINATION: No new gross rash. LYMPHATICS: No peripheral lymphadenopathy. IMPRESSION: Hyponatremia in the context of compulsive water drinking. PLAN: 1. We will continue to extremity free water intake in this patient. 2. Get serum chemistry sodium response to water restriction in this patient. 3. Further management will be dependent on the clinical course. Job ID: [id number]
[2019-11-30] MEDS: Clindamycin/D5W 600 MG in Premix Bag 1 BAG IVPB SCH ×5 (00:03→23:13)
[2019-11-30] MEDS: valACYclovir 500 MG TAB PO SCH ×3 (05:09→21:12)
[2019-11-30 05:30] LABS: Anion Gap 10 mmol/L (10-20); BUN (Urea Nitrogen) 11 mg/dL (8.4-25.7); Calc. Creatinine Clearance 103 mL/min (70-130); Calcium 9.1 mg/dL (7.8-10.44); Carbon Dioxide 23 mmol/L (23-31); Chloride 95 mmol/L (98-107); Estimated GFR-MDRD Greater than 90; Glucose 104 mg/dL (80-115); Sodium 124 mmol/L (136-145)
[2019-11-30] MEDS: Loratadine 10 MG TAB PO SCH (08:55)
[2019-11-30] MEDS: Lisinopril 20 MG TAB PO SCH (08:55)
[2019-11-30] MEDS: Amlodipine 10 MG TAB PO SCH (08:55)
[2019-11-30] MEDS: hydrALAZINE 25 MG TAB PO SCH ×3 (08:55→21:12)
[2019-11-30] MEDS: Acetaminophen 325 MG TAB PO PRN ×2 (09:02→21:19)
--- NOTE | 2019-11-30 15:22 | PDOC.HOSPP ---
- Subjective Encounter Date: 11/30/19 Encounter Time: 09:00 Subjective: no complaints, feels better is eating well - Objective Vital Signs & Weight: Vital Signs (12 hours) Temp Pulse Resp BP BP BP Pulse Ox 11/30/19 14:58 88 167/83 H 11/30/19 12:00 98.5 F 98 16 160/74 H 98 11/30/19 08:55 88 160/74 H 99 11/30/19 07:32 98.3 F 88 16 160/74 H 99 11/30/19 04:40 98 F 80 16 158/77 H 97 Weight Weight 170 lb 6 oz I&O: 11/29/19 11/30/19 12/01/19 06:59 06:59 06:59 Intake Total 2550 1640 Output Total 3520 2635 Balance -970 -995 Result Diagrams: 11/28/19 05:11 11/30/19 04:47 Hospitalist ROS - Medication Medications: Active Medications Generic Name Dose Route Start Last Admin Trade Name Freq PRN Reason Stop Dose Admin Acetaminophen 650 mg 11/27/19 21:54 11/30/19 09:02 Tylenol PO 650 mg Q4H PRN Administration Headache/Fever/Mild Pain (1-3) Amlodipine Besylate 10 mg 11/29/19 09:00 11/30/19 08:55 Norvasc PO 10 mg DAILY MUSA Administration Carbamazepine 400 mg 11/28/19 21:00 11/29/19 21:14 Tegretol PO 400 mg HS MUSA Administration Diltiazem HCl 180 mg 11/29/19 09:00 11/30/19 08:55 Cardizem Cd PO 180 mg DAILY MUSA Administration Duloxetine HCl 60 mg 11/28/19 21:00 11/29/19 21:14 Cymbalta PO 60 mg HS MUSA Administration Hydralazine HCl 50 mg 11/28/19 15:00 11/30/19 14:58 Apresoline PO 50 mg TID MUSA Administration Hydralazine HCl 10 mg 11/28/19 22:32 11/28/19 23:32 Apresoline SLOW IVP 10 mg Q4H PRN Administration SBP > 180 and HR < 70 Clindamycin Phosphate/Dextrose 50 mls @ 100 mls/hr 11/27/19 23:59 11/30/19 12 :26 600 mg/ Device IVPB 50 mls Q6HR MUSA Administration Ceftriaxone Sodium 1 gm/ 100 mls @ 200 mls/hr 11/28/19 16:00 11/29/19 16:12 Sodium Chloride IVPB 100 mls Q24HR MUSA Administration Lisinopril 40 mg 11/29/19 09:00 11/30/19 08:55 Zestril PO 40 mg DAILY MUSA Administration Loratadine 10 mg 11/29/19 09:00 11/30/19 08:55 Claritin PO 10 mg DAILY MUSA Administration Pantoprazole Sodium 40 mg 11/29/19 09:00 11/30/19 08:55 Protonix PO 40 mg DAILY MUSA Administration Valacyclovir HCl 1,000 mg 11/28/19 22:00 11/30/19 14:58 Valtrex PO 1,000 mg Q8HR MUSA Administration - Exam General Appearance: awake alert Eye: PERRL, anicteric sclera ENT: no oropharyngeal lesions, moist mucosa Neck: supple, no JVD Heart: RRR, no murmur Respiratory: no wheezes, no rales Gastrointestinal: soft, non-tender, non-distended, normal bowel sounds Extremities: no cyanosis, no edema Extremities - other findings: left aka Neurological: cranial nerve grossly intact, no focal deficits Hosp A/P (1) Hyponatremia Code(s): E87.1 - HYPO-OSMOLALITY AND HYPONATREMIA Status: Acute (2) Disseminated herpes zoster Code(s): B02.7 - DISSEMINATED ZOSTER Status: Suspected (3) Left above-knee amputee Code(s): Z89.612 - ACQUIRED ABSENCE OF LEFT LEG ABOVE KNEE Status: Chronic (4) Anemia Code(s): D64.9 - ANEMIA, UNSPECIFIED Status: Chronic Qualifiers: Anemia type: unspecified type Qualified Code(s): D64.9 - Anemia, unspecified (5) COPD (chronic obstructive pulmonary disease) Status: Chronic Qualifiers: COPD type: unspecified COPD Qualified Code(s): J44.9 - Chronic obstructive pulmonary disease, unspecified (6) HTN (hypertension) Code(s): I10 - ESSENTIAL (PRIMARY) HYPERTENSION Status: Chronic Qualifiers: - Plan is on clindamycin, ceftriaxone, per ortho there is no signs of septic arthritis. his swelling, erythema and tenderness to right wrist (previously operated in [place] in 10/19) is receding well. nebs, valtrex q8h. Pt is suspected to have disseminated zoster or simplex per , his generalized skin lesions are crusting, await lesion pcr for simplex/zoster results. hemostable dc plan per advice.
[2019-11-30] MEDS: cefTRIAXone\\ROCEPHIN 1 GM in Sodium Chloride 0.9% 100 ML IVPB SCH (16:47)
--- NOTE | 2019-11-30 17:00 | PRG ---
DATE OF SERVICE: 11/30/2019 SUBJECTIVE: Still with moderate pain in the right wrist. The lesions in the face are about the same, maybe healing a little bit. No cough. No abdominal pain or diarrhea. No genitourinary symptoms. He has been afebrile. Right wrist is still with bulging, swelling, likely joint fluid present there. OBJECTIVE: VITAL SIGNS: He is afebrile. LUNGS: Clear. HEART: S1 and S2. Regular rate. ABDOMEN: Soft, not distended. The skin lesions about the same. LABORATORY DATA: White cell count 3.3. Chemistry with sodium 124, creatinine 0.81. The assays for herpes zoster and herpes simplex were pending at this time. He continues on acyclovir. Ideally, one would like to have an aspirate from the wrists to see if we could evaluate for infection in the wrist and see what organisms causing it. Job ID: [id number]
--- NOTE | 2019-11-30 17:22 | PRG ---
DATE OF SERVICE: 11/30/2019 SUBJECTIVE: The patient was noted with the following vital signs. OBJECTIVE: VITAL SIGNS: Afebrile, temperature 98.5, pulse 88, blood pressure 107/83, O2 saturations of 98%. HEENT: Unremarkable. CARDIOVASCULAR: First and second heart sounds were heard. RESPIRATORY: Clear to auscultation. DIGESTIVE SYSTEM: Revealed a benign abdomen. EXTREMITIES: No peripheral edema. SKIN: No new gross rash. LYMPHATICS: No peripheral lymphadenopathy. LABORATORY INVESTIGATION: Significant for sodium of 124. 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 PLAN: 1. We will continue to restrict the free water in this patient and follow the sodium level. 2. If the patient's sodium continues to drift down, medication. 3. Further management to be dependent on the clinical course. Job ID: [id number]
[2019-11-30] MEDS: DULoxetine 60 MG CAP PO SCH (21:14)
[2019-11-30] MEDS: carBAMazepine 200 MG TAB PO SCH (21:15)
[2019-12-01] MEDS: Clindamycin/D5W 600 MG in Premix Bag 1 BAG IVPB SCH ×4 (05:24→23:55)
[2019-12-01] MEDS: valACYclovir 500 MG TAB PO SCH ×3 (05:24→21:41)
[2019-12-01 06:18] LABS: Anion Gap 10 mmol/L (10-20); BUN (Urea Nitrogen) 13 mg/dL (8.4-25.7); Calc. Creatinine Clearance 102 mL/min (70-130); Calcium 9.1 mg/dL (7.8-10.44); Carbon Dioxide 24 mmol/L (23-31); Chloride 95 mmol/L (98-107); Estimated GFR-MDRD Greater than 90; Glucose 96 mg/dL (80-115); Sodium 125 mmol/L (136-145)
[2019-12-01] MEDS: Amlodipine 10 MG TAB PO SCH (08:15)
[2019-12-01] MEDS: Lisinopril 20 MG TAB PO SCH (08:15)
[2019-12-01] MEDS: Loratadine 10 MG TAB PO SCH (08:16)
[2019-12-01] MEDS: hydrALAZINE 25 MG TAB PO SCH ×3 (08:16→21:40)
[2019-12-01] MEDS: Acetaminophen 325 MG TAB PO PRN ×3 (08:34→21:41)
--- NOTE | 2019-12-01 12:00 | PDOC.HOSPP ---
- Subjective Encounter Date: 12/01/19 Encounter Time: 10:45 Subjective: no new complaints, feels better - Objective Vital Signs & Weight: Vital Signs (12 hours) Temp Pulse Resp BP BP BP Pulse Ox 12/01/19 11:51 158/76 H 12/01/19 10:45 98.2 F 89 16 96 12/01/19 08:16 91 12/01/19 08:15 91 157/80 H 12/01/19 08:00 98 12/01/19 07:30 98.4 F 91 16 187/90 H 98 12/01/19 05:23 80 153/84 H 12/01/19 04:03 98.1 F 90 16 182/90 H 99 Weight Weight 170 lb 6 oz I&O: 11/30/19 12/01/19 12/02/19 06:59 06:59 06:59 Intake Total 1640 1430 Output Total 2635 1750 Balance -995 -320 Result Diagrams: 11/28/19 05:11 12/01/19 05:06 Hospitalist ROS - Medication Medications: Active Medications Generic Name Dose Route Start Last Admin Trade Name Freq PRN Reason Stop Dose Admin Acetaminophen 650 mg 11/27/19 21:54 12/01/19 08:34 Tylenol PO 650 mg Q4H PRN Administration Headache/Fever/Mild Pain (1-3) Amlodipine Besylate 10 mg 11/29/19 09:00 12/01/19 08:15 Norvasc PO 10 mg DAILY MUSA Administration Carbamazepine 400 mg 11/28/19 21:00 11/30/19 21:15 Tegretol PO 400 mg HS MUSA Administration Diltiazem HCl 180 mg 11/29/19 09:00 12/01/19 08:15 Cardizem Cd PO 180 mg DAILY MUSA Administration Duloxetine HCl 60 mg 11/28/19 21:00 11/30/19 21:14 Cymbalta PO 60 mg HS MUSA Administration Hydralazine HCl 50 mg 11/28/19 15:00 12/01/19 08:16 Apresoline PO 50 mg TID MUSA Administration Hydralazine HCl 10 mg 11/28/19 22:32 11/28/19 23:32 Apresoline SLOW IVP 10 mg Q4H PRN Administration SBP > 180 and HR < 70 Clindamycin Phosphate/Dextrose 50 mls @ 100 mls/hr 11/27/19 23:59 12/01/19 11 :46 600 mg/ Device IVPB 50 mls Q6HR MUSA Administration Ceftriaxone Sodium 1 gm/ 100 mls @ 200 mls/hr 11/28/19 16:00 11/30/19 16:47 Sodium Chloride IVPB 100 mls Q24HR MUSA Administration Lisinopril 40 mg 11/29/19 09:00 12/01/19 08:15 Zestril PO 40 mg DAILY MUSA Administration Loratadine 10 mg 11/29/19 09:00 12/01/19 08:16 Claritin PO 10 mg DAILY MUSA Administration Pantoprazole Sodium 40 mg 11/29/19 09:00 12/01/19 08:16 Protonix PO 40 mg DAILY MUSA Administration Valacyclovir HCl 1,000 mg 11/28/19 22:00 12/01/19 05:24 Valtrex PO 1,000 mg Q8HR MUSA Administration - Exam General Appearance: awake alert Eye: PERRL, anicteric sclera ENT: no oropharyngeal lesions, moist mucosa Neck: supple, no JVD Heart: RRR, no murmur Respiratory: no wheezes, no rales Gastrointestinal: soft, non-tender, non-distended, normal bowel sounds Extremities: no cyanosis, no edema Neurological: cranial nerve grossly intact, no focal deficits Psychiatric: normal affect, A&O x 3 Hosp A/P (1) Hyponatremia Code(s): E87.1 - HYPO-OSMOLALITY AND HYPONATREMIA Status: Acute (2) Disseminated herpes zoster Code(s): B02.7 - DISSEMINATED ZOSTER Status: Suspected (3) Left above-knee amputee Code(s): Z89.612 - ACQUIRED ABSENCE OF LEFT LEG ABOVE KNEE Status: Chronic (4) Anemia Code(s): D64.9 - ANEMIA, UNSPECIFIED Status: Chronic Qualifiers: Anemia type: unspecified type Qualified Code(s): D64.9 - Anemia, unspecified (5) COPD (chronic obstructive pulmonary disease) Status: Chronic Qualifiers: COPD type: unspecified COPD Qualified Code(s): J44.9 - Chronic obstructive pulmonary disease, unspecified (6) HTN (hypertension) Code(s): I10 - ESSENTIAL (PRIMARY) HYPERTENSION Status: Chronic Qualifiers: - Plan is on clindamycin, ceftriaxone, per ortho there is no signs of septic arthritis. his swelling, erythema and tenderness to right wrist (previously operated in [place] in 10/19) is receding well. nebs, valtrex q8h. Pt is suspected to have disseminated zoster or simplex per , his generalized skin lesions are crusting, await lesion pcr for simplex/zoster results. hemostable dc plan per advice.
--- NOTE | 2019-12-01 13:47 | PRG ---
DATE OF SERVICE: 12/01/2019 SUBJECTIVE: Feeling about the same. No respiratory symptoms or abdominal pain. No diarrhea. Has been afebrile. The skin lesions are healing. The right wrist is about the same. The mobility is good. Has some fluid inside. No further lab tests have been submitted. ASSESSMENT AND DISCUSSION: Chronic hepatitis C, untreated; chronic obstructive pulmonary disease, scapholunate degenerative disease with carpectomy, now with inflammatory changes and diffuse pustular papular rash. This patient is currently on Valtrex, and he could be discharged on oral Valtrex for another 5 to 7 days approximately, same dose. In terms of his wrist, we do not have a diagnosis yet. I believe an aspirate of the wrist needs to be carried out, and I think that the local orthopedic surgeon who performed the procedure will be the one to consider that possibility for diagnostic testing of the fluid. In the absence of sample, we will have to treat as if he did have an infection there, and he is currently on ceftriaxone, and I would probably consider discharge planning on oral doxycycline and rifampin and give him at least 4 weeks' worth of medication. He will follow up with his orthopedic surgeon in [place] and then go from there. Probably, we will need to do an aspirate for testing and then decide if a washout would be required, even to consider removal of hardware or hopefully not if the fluid findings are relatively benign and cultures are negative. Job ID: [id number]
[2019-12-01] MEDS: cefTRIAXone\\ROCEPHIN 1 GM in Sodium Chloride 0.9% 100 ML IVPB SCH (17:22)
[2019-12-01] MEDS ORDERED: Tolvaptan 15 MG TAB PO SCH (18:00)
--- NOTE | 2019-12-01 18:01 | PRG ---
DATE OF SERVICE: 12/01/2019 SUBJECTIVE: The patient noted with the following vital signs. OBJECTIVE: VITAL SIGNS: Afebrile, temperature 98.4, pulse 87, respiratory rate of 16, O2 saturation of 97%, and blood pressure 169/77. HEENT: Unremarkable. CARDIOVASCULAR SYSTEM: First and second heart sounds were heard. RESPIRATORY SYSTEM: Clear to auscultation. DIGESTIVE: Revealed a benign abdomen. Positive bowel sounds. EXTREMITIES: No peripheral edema. SKIN: No new gross rash. LYMPHATICS: No peripheral lymphadenopathy. LABORATORY INVESTIGATION: Showed sodium of 125. IMPRESSION: Hyponatremia in the context of compulsive water drinking SIADH. PLAN: 1. The patient's sodium seems to be lacking behind for quite sometime. We will likely give this patient a single dose of tolvaptan and hopefully this will correct the sodium level. 2. Further management to be dependent on the clinical course. Job ID: [id number]
[2019-12-01] MEDS: carBAMazepine 200 MG TAB PO SCH (21:40)
[2019-12-01] MEDS: DULoxetine 60 MG CAP PO SCH (21:41)
[2019-12-02] MEDS: Clindamycin/D5W 600 MG in Premix Bag 1 BAG IVPB SCH ×2 (06:08→12:43)
[2019-12-02] MEDS: valACYclovir 500 MG TAB PO SCH ×2 (06:08→13:57)
[2019-12-02 06:16] LABS: Anion Gap 10 mmol/L (10-20); BUN (Urea Nitrogen) 12 mg/dL (8.4-25.7); Calc. Creatinine Clearance 103 mL/min (70-130); Calcium 9.5 mg/dL (7.8-10.44); Carbon Dioxide 26 mmol/L (23-31); Chloride 99 mmol/L (98-107); Estimated GFR-MDRD Greater than 90; Glucose 103 mg/dL (80-115); Potassium 4.5 mmol/L (3.5-5.1); Sodium 130 mmol/L (136-145)
[2019-12-02] MEDS: hydrALAZINE 25 MG TAB PO SCH (09:12)
[2019-12-02] MEDS: Loratadine 10 MG TAB PO SCH (09:13)
[2019-12-02] MEDS: Lisinopril 20 MG TAB PO SCH (09:13)
[2019-12-02] MEDS: Amlodipine 10 MG TAB PO SCH (09:14)
[2019-12-02 10:56] VITALS: BP 155/84; TEMP 98.4
--- NOTE | 2019-12-02 14:59 | DIS ---
DATE OF ADMISSION: 11/27/2019 DATE OF DISCHARGE: 12/02/2019 DISCHARGE DISPOSITION: To longterm. 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 PROCEDURES DONE DURING HOSPITALIZATION: The patient has had H and H of 9 and 28, platelet count 212. Serum sodium was 124 on admission with discharge numbers of 130, BUN 12, creatinine 0.8, serum osmolality 269, urine osmolality 271. HSV-1 DNA PCR and HSV-2 DNA PCR both are negative from the wounds on the body. INPATIENT CONSULT: Dr. Borja for Infectious Disease, Dr. Ortiz for Nephrology. DISCHARGE MEDICATIONS: 1. Doxycycline 100 mg p.o. twice daily for 4 weeks. 2. Rifampin 300 mg p.o. twice daily for 4 weeks. This is for suspected infection in the right wrist with recent surgery. 3. Valtrex 1000 mg p.o. 3 times daily for another 5 days. 4. Hydralazine 50 mg p.o. three times daily. 5. Ferrous sulfate 325 mg p.o. daily. 6. Tegretol 400 mg p.o. at bedtime. 7. Norvasc 10 mg p.o. daily. 8. Omeprazole 20 mg daily. 9. Claritin 10 mg daily. 10. Lisinopril 40 mg daily. 11. Duloxetine 60 mg p.o. nightly. 12. Cardizem CD 180 mg p.o. daily. 13. Calcium with vitamin D 250 mg p.o. 3 times daily. 14. Albuterol inhaler q.6 hourly p.r.n. ALLERGIES: NO KNOWN DRUG ALLERGIES. DISCHARGE PLAN: The patient to follow up with his orthopedic surgeon who did his right wrist surgery in 2 to 3 weeks. He also needs to follow up with his longterm primary care physician in 1 week. BRIEF COURSE DURING HOSPITALIZATION: The patient initially was sent over from longterm unit for right wrist swelling, redness, generalized maculopapular rash with purulence which was present all over his body, more so in the upper torso. In view of this history and the patient's prior history of hepatitis C, patient was admitted to medical floor. He was placed on broad-spectrum IV antibiotics. He was also placed on Valtrex after ID consultation was obtained. He was suspected to have herpes zoster disseminated versus herpes simplex. The PCR from the lesions have been negative for the same. He needs to nevertheless complete the full course for another 5 days of Valtrex. Orthopedic surgical consultation was obtained here, but no intervention was done for his right wrist. He will be continued on oral antibiotics for another 4 weeks per Infectious Disease specialist. He needs to follow up with his orthopedic surgeon at [place] where he had carpectomy and other ancillary surgeries done for the same in 2 to 3 weeks. No clear evidence is available for suspicion for right wrist infection as the patient did not have any aspiration of the wrist joint done here. He is otherwise hemodynamically stable and will be shortly discharged back to longterm. Please note I have seen and examined the patient on the day of discharge. Job ID: [id number]
--- NOTE | 2019-12-03 00:33 | PRG ---
DATE OF SERVICE: 12/02/2019 SUBJECTIVE: The patient noted to be hemodynamically stable. OBJECTIVE: HEENT: Unremarkable. CARDIOVASCULAR SYSTEM: First and second heart sounds were heard. RESPIRATORY SYSTEM: Clear to auscultation. DIGESTIVE: Revealed a benign abdomen. Positive bowel sounds. EXTREMITIES: No peripheral edema. SKIN EXAMINATION: No new gross rash. LYMPHATICS: No peripheral lymphadenopathy. Job ID: [id number]
== END 2019-12-02 15:15 | DRG 603 ==
LOC: ERS 18:47 → SURG A 22:30 → EEVIPCON 22:35 → SURG A 11-29 10:42
PROVIDERS: ADMIT Internal Medicine; ATTEND Internal Medicine
DX: L03.113 Cellulitis of right upper limb (principal); B02.7 Disseminated zoster; E22.2 Syndrome of inappropriate secretion of antidiuretic hormone; J44.9 Chronic obstructive pulmonary disease, unspecified; I10 Essential (primary) hypertension; B18.2 Chronic viral hepatitis C; B00.9 Herpesviral infection, unspecified; K21.9 Gastro-esophageal reflux disease without esophagitis; D50.9 Iron deficiency anemia, unspecified; M19.90 Unspecified osteoarthritis, unspecified site; F32.9 Major depressive disorder, single episode, unspecified; Z89.612 Acquired absence of left leg above knee; Z79.899 Other long term (current) drug therapy
CPT/HCPCS: 36415; 80048; 81003; 82570; 83930; 83935; 84300; 85025; 87529; 93005; 96365; J0360; J0696; J2543; J3370; J3490

== ENCOUNTER 2021-08-08 00:36 | Inpatient (IN) | payer OTHER ==
[2021-08-08] MEDS ORDERED: Dextrose 50% Abboject 50 ML SYRINGE SLOW IVP PRN (02:30)
[2021-08-08] MEDS ORDERED: Dextrose 5% in Water 1,000 ML IV PRN (02:30)
[2021-08-08] MEDS ORDERED: HumaLOG 300 UNITS/3 ML VIAL SC PRN ×2 (02:30)
[2021-08-08] MEDS ORDERED: Ondansetron ODT 4 MG TAB PO PRN (02:30)
[2021-08-08] MEDS ORDERED: Ondansetron PF 4 MG/2 ML Vial IVP PRN (02:30)
[2021-08-08] MEDS ORDERED: hydrALAZINE 20 MG/ML VIAL SLOW IVP PRN (02:30)
[2021-08-08] MEDS ORDERED: traMADol HCl 50 MG TAB PO PRN ×2 (02:33)
[2021-08-08] MEDS ORDERED: Cyclobenzaprine 10 MG TAB PO PRN (02:33)
[2021-08-08] MEDS ORDERED: Acetaminophen 500 MG TAB PO SCH (02:45)
[2021-08-08] MEDS ORDERED: Ibuprofen 200 MG TAB PO PRN (02:51)
[2021-08-08 03:36] VITALS: BMI 28.3
[2021-08-08] MEDS: Acetaminophen 325 MG TAB PO SCH ×4 (03:58→20:22)
[2021-08-08] MEDS: Sodium Chloride 0.9% 1,000 ML IV SCH ×2 (03:58→14:01)
[2021-08-08] MEDS: Morphine 4 MG/ML VIAL SLOW IVP PRN ×2 (07:11→09:09)
[2021-08-08 07:18] LABS: Hemoglobin 7.2 g/dL (14.0-18.0); Mean Corpuscular HGB CONC 31.6 g/dL (32.0-36.0); Mean Corpuscular Hemoglobin 24.5 pg (27.0-31.0); Mean Corpuscular Volume 77.6 fL (78.0-98.0); Mean Platelet Volume 8.5 fL (7.4-10.4); Platelet Count 211 thou/uL (130-400); RBC Distribution Width 20.6 % (11.5-14.5); Red Blood Cell (RBC) Count 2.94 mill/uL (4.70-6.10); White Blood Cell (WBC) Count 4.8 thou/uL (4.8-10.8)
[2021-08-08 07:39] LABS: Phosphorus 4.6 mg/dL (2.3-4.7)
[2021-08-08 07:40] LABS: Anion Gap 11 mmol/L (10-20); BUN (Urea Nitrogen) 14 mg/dL (8.4-25.7); Calc. Creatinine Clearance 106 mL/min (70-130); Calcium 8.9 mg/dL (7.8-10.44); Carbon Dioxide 24 mmol/L (23-31); Chloride 91 mmol/L (98-107); Glucose 105 mg/dL (80-115); Magnesium 1.5 mg/dL (1.6-2.6); Sodium 122 mmol/L (136-145)
[2021-08-08 07:57] LABS: Band 4 % (5-11); Eosinophils 3 % (0-10); Hypochromia SLIGHT = 6-15 cells (100X) (0-5/hpf); Lymphocytes 33 % (21-51); MDiff Complete? YES; Microcytosis SLIGHT = 6-15 cells (100X) (0-5/hpf); Monocytes 13 % (0-10); Neutrophil 47 % (42-75); Platelet Morphology Comment Appears Adequate; Polychromasia SLIGHT = 2-3 cells (100X) (0-2/hpf)
[2021-08-08] MEDS: Famotidine 20 MG TAB PO SCH ×2 (09:03→20:21)
[2021-08-08] MEDS ORDERED: Albuterol 200 PUFF (6.7GM INHALER) INH PRN (17:52)
[2021-08-08] MEDS ORDERED: Carvedilol 6.25 MG TAB PO SCH (18:00)
[2021-08-08] MEDS: Calcium Carbonate 600 MG + Vit D TAB PO SCH (18:21)
[2021-08-08] MEDS: Minocycline HCl 50 MG CAP PO SCH (20:21)
[2021-08-08] MEDS: hydrALAZINE 25 MG TAB PO SCH (20:22)
[2021-08-08] MEDS ORDERED: carBAMazepine 200 MG TAB PO SCH (21:00)
[2021-08-08] MEDS ORDERED: DULoxetine 60 MG CAP PO SCH (21:00)
[2021-08-08] MEDS ORDERED: CHLORPHENIRAMINE MALEATE 4 MG PO SCH (21:00)
[2021-08-08] MEDS ORDERED: Terazosin HCl 1 MG CAP PO SCH (21:00)
[2021-08-09] MEDS: Acetaminophen 325 MG TAB PO SCH ×2 (03:51→11:04)
[2021-08-09] MEDS: Calcium Carbonate 600 MG + Vit D TAB PO SCH ×2 (06:06→11:04)
[2021-08-09] MEDS ORDERED: Carvedilol 6.25 MG TAB PO SCH (08:00)
[2021-08-09] MEDS ORDERED: Magnesium Sulfate 4 GM in Sodium Chloride 0.9% 250 ML 250 ML IVPB SCH (09:00)
[2021-08-09] MEDS ORDERED: carBAMazepine 200 MG TAB PO SCH (09:00)
[2021-08-09] MEDS ORDERED: Lisinopril 20 MG TAB PO SCH (09:00)
[2021-08-09] MEDS ORDERED: [UNRECOGNIZED DRUG - REMARK] R NARE SCH (09:00)
[2021-08-09] MEDS: hydrALAZINE 25 MG TAB PO SCH (11:04)
[2021-08-09] MEDS: Minocycline HCl 50 MG CAP PO SCH (11:05)
[2021-08-09] MEDS ORDERED: Ferrous Sulfate 325 MG TAB PO SCH (12:00)
[2021-08-09 19:58] VITALS: BP 144/70; TEMP 98.5
== END 2021-08-09 15:24 | disposition home or self-care (01) | DRG 558 ==
LOC: SURG B 00:36 → EEVIPCON 00:36
PROVIDERS: ADMIT Surgery; ATTEND Surgery
DX: M25.752 Osteophyte, left hip (principal); K21.9 Gastro-esophageal reflux disease without esophagitis; I10 Essential (primary) hypertension; M19.90 Unspecified osteoarthritis, unspecified site; J44.9 Chronic obstructive pulmonary disease, unspecified; F32.A Depression, unspecified; Z89.612 Acquired absence of left leg above knee; Z87.891 Personal history of nicotine dependence
CPT/HCPCS: 36415; 36416; 80048; 83735; 84100; 85025; J0360; J2270; J7050

== ENCOUNTER 2022-03-28 08:01 | Inpatient (IN) | payer OTHER ==
[2022-03-28] MEDS ORDERED: Fentanyl 100 MCG/2 ML VIAL ONE (08:09)
[2022-03-28] MEDS ORDERED: Fentanyl CADD 100 ML IV SCH ×2 (08:30→15:45)
[2022-03-28] MEDS ORDERED: EPINEPHrine 1 MG/10 ML Abboject SYRINGE ONE (08:37)
[2022-03-28 08:44] LABS: Actual Bicarbonate (HCO3a) 15.5 mEq/L (22-28); Analyzer IN Cardio ER; Base Excess (BEa) -11.2 mEq/L (-2.0 to +3.0); CO2 Tension 38.3 mmHg (35.0-45.0); Calcium, Ionized (arterial) 1.12 mmol/L (1.12-1.30); Carboxyhemoglobin (COHb) 0.9 gm% (0.0-3.0); Hemoglobin (Hb) 6.5 g/dL (14.0-18.0); O2 Tension (PaO2), arterial 447.9 mmHg (> 80.0)
[2022-03-28 08:45] LABS: ALV-art Gradient 217.225 mmHg (0-20); Puncture Site RBA; pH, Arterial 7.23 (7.35-7.45)
[2022-03-28 08:46] LABS: Hemoglobin 5.8 g/dL (14.0-18.0); Mean Corpuscular HGB CONC 28.1 g/dL (32.0-36.0); Mean Corpuscular Hemoglobin 20.9 pg (27.0-31.0); Mean Corpuscular Volume 74.4 fL (78.0-98.0); Mean Platelet Volume 8.2 fL (7.4-10.4); Platelet Count 315 thou/uL (130-400); RBC Distribution Width 15.8 % (11.5-14.5); Red Blood Cell (RBC) Count 2.78 mill/uL (4.70-6.10); White Blood Cell (WBC) Count 21.6 thou/uL (4.8-10.8)
[2022-03-28 08:49] LABS: Bilirubin Negative (Negative); Blood, Urine Negative (Negative); Clarity Clear (Clear); Glucose, Urine (Dipstick) Normal (Negative); Ketone, Urine Negative (Negative); Leukocyte Negative Leu/uL (Negative); Nitrite Negative (Negative); Protein, Urine (Dipstick) 10 mg/dL (Neg-Trace); Specific Gravity, Urine 1.012 (1.002-1.036); Urobilinogen Normal mg/dL (Less than 2)
[2022-03-28 08:54] LABS: ALT (SGPT) 16 U/L (8-55); AST (SGOT) 30 U/L (5-34); Albumin 3.3 g/dL (3.4-4.8); Alkaline Phosphatase 75 U/L (40-110); Anion Gap 13 mmol/L (10-20); BUN (Urea Nitrogen) 12 mg/dL (8.4-25.7); Bilirubin, Total 0.4 mg/dL (0.2-1.2); Calc. Creatinine Clearance 0 mL/min (70-130); Calcium 7.8 mg/dL (7.8-10.44); Carbon Dioxide 17 mmol/L (23-31); Chloride 97 mmol/L (98-107); Estimated GFR 58; Globulin 2.8 g/dL (2.4-3.5); Glucose 190 mg/dL (80-115); Potassium 5.3 mmol/L (3.5-5.1); Protein, Total 6.1 g/dL (5.8-8.1); Sodium 122 mmol/L (136-145)
[2022-03-28 09:15] LABS: Band 19 % (5-11); Burr Cells SLIGHT = 2-5 cells (100X) (0-1/hpf); CKMB 5.5 ng/mL (0-6.6); Helmet Cells SLIGHT = 2-5 cells (100X) (0-1/hpf); Hypochromia MODERATE=16-30 cells (100X) (0-5/hpf); Lymphocytes 2 % (21-51); MDiff Complete? YES; Metamyelocyte 1 % (0-0); Microcytosis SLIGHT = 6-15 cells (100X) (0-5/hpf); Monocytes 1 % (0-10); Myelocyte 1 % (0-0); Neutrophil 75 % (42-75); Ovalocytes SLIGHT = 2-5 cells (100X) (0-1/hpf); Platelet Morphology Comment Appears Adequate; Polychromasia SLIGHT = 2-3 cells (100X) (0-2/hpf); Reactive Lymphocytes 1 % (0-10); Reflex for Review?? NO; Schistocytes MODERATE= 6-15 cells (100X) (0-1/hpf); Target Cells SLIGHT = 2-5 cells (100X) (0-1/hpf)
[2022-03-28] MEDS ORDERED: Cefepime 2 GM VIAL ONE (10:02)
[2022-03-28] MEDS ORDERED: Vancomycin 1 GM/200 ML BAG ONE (10:16)
[2022-03-28 10:25] LABS: INR-International Normal Ratio 1.8; Prothrombin Time 21.2 sec (12.0-14.7)
[2022-03-28 10:30] LABS: SARS-CoV-2 NAA Rapid Test Not Detected (NotDetected)
[2022-03-28] MEDS ORDERED: Lidocaine 1% (PF) 30 ML VIAL ONE (11:14)
[2022-03-28] MEDS ORDERED: Lorazepam 2 MG/ML VIAL ONE (11:52)
[2022-03-28 12:11] LABS: Actual Bicarbonate (HCO3a) 16.3 mEq/L (22-28); Base Excess (BEa) -11.1 mEq/L (-2.0 to +3.0); Carboxyhemoglobin (COHb) 1.2 gm% (0.0-3.0); Hemoglobin (Hb) 7.7 g/dL (14.0-18.0); O2 Tension (PaO2), arterial 162.9 mmHg (> 80.0); Potassium - ABG Lab 4.99 mmol/L (3.70-5.30)
[2022-03-28 12:13] LABS: Puncture Site RRA; pH, Arterial 7.19 (7.35-7.45)
[2022-03-28] MEDS ORDERED: Norepinephrine 8 MG/0.9% NS 250 ML IVPB SCH (12:45)
[2022-03-28 12:52] LABS: #Lymphocytes 0.6 thou/uL (1.20-3.40); #Monocytes 0.9 thou/uL (0.11-0.59); #Neutrophils 16.4 thou/uL (1.40-6.50); %Eosinophils 0.1 % (0.0-10.0); %Lymphocytes 3.6 % (21.0-51.0); %Monocytes 4.9 % (0.0-10.0); %Neutrophils 91.5 % (42.0-75.0); Hemoglobin 6.5 g/dL (14.0-18.0); Mean Corpuscular HGB CONC 29.1 g/dL (32.0-36.0); Mean Corpuscular Hemoglobin 22.1 pg (27.0-31.0); Mean Corpuscular Volume 75.8 fL (78.0-98.0); Platelet Count 263 thou/uL (130-400); RBC Distribution Width 16.7 % (11.5-14.5); Red Blood Cell (RBC) Count 2.92 mill/uL (4.70-6.10); White Blood Cell (WBC) Count 17.9 thou/uL (4.8-10.8)
[2022-03-28] MEDS ORDERED: Norepinephrine 8 MG/0.9% NS 250 ML ONE (12:55)
[2022-03-28] MEDS: Sodium Bicarbonate 150 MEQ in Dextrose 5% in Water 1,000 ML IV SCH ×2 (13:00→17:25)
[2022-03-28 13:06] LABS: INR-International Normal Ratio 1.7; PTT 34.1 sec (22.9-36.1); Prothrombin Time 20.1 sec (12.0-14.7)
[2022-03-28 13:17] LABS: ALT (SGPT) 19 U/L (8-55); AST (SGOT) 32 U/L (5-34); Alkaline Phosphatase 69 U/L (40-110); Anion Gap 13 mmol/L (10-20); BUN (Urea Nitrogen) 15 mg/dL (8.4-25.7); Bilirubin, Total 0.5 mg/dL (0.2-1.2); Calc. Creatinine Clearance 0 mL/min (70-130); Calcium 7.3 mg/dL (7.8-10.44); Carbon Dioxide 17 mmol/L (23-31); Chloride 97 mmol/L (98-107); Estimated GFR 53; Globulin 2.7 g/dL (2.4-3.5); Glucose 204 mg/dL (80-115); Potassium 5.1 mmol/L (3.5-5.1); Protein, Total 5.7 g/dL (5.8-8.1); Sodium 122 mmol/L (136-145)
[2022-03-28] MEDS: Lorazepam 2 MG/ML VIAL SLOW IVP PRN ×2 (13:17→15:29)
[2022-03-28 14:00] LABS: Lactic Acid 3.4 mmol/L (0.5-2.2)
[2022-03-28 14:02] LABS: Troponin I 0.219 ng/mL (< 0.028)
[2022-03-28] MEDS ORDERED: Ondansetron PF 4 MG/2 ML Vial IVP PRN (14:17)
[2022-03-28] MEDS ORDERED: Ondansetron ODT 4 MG TAB PO PRN (14:17)
[2022-03-28] MEDS ORDERED: Pantoprazole 40 MG VIAL IVP SCH (14:45)
[2022-03-28] MEDS ORDERED: DISCONTINUE PREVIOUS NARCOTIC PAIN MEDICATIONS AND BENZODIAZEPINES FS SCH (15:45)
[2022-03-28] MEDS ORDERED: Fentanyl BOLUS 250 ML IVPB PRN (15:45)
[2022-03-28] MEDS ORDERED: Propofol BOLUS 1,000 MG/100 ML VIAL IV PRN (15:45)
[2022-03-28] MEDS ORDERED: Morphine 4 MG/ML VIAL SLOW IVP PRN (15:45)
[2022-03-28] MEDS ORDERED: Lorazepam 2 MG/ML VIAL SLOW IVP PRN (15:45)
[2022-03-28] MEDS: Propofol 1,000 MG/100 ML VIAL IV PRN (15:54)
[2022-03-28 17:10] LABS: Troponin I 0.193 ng/mL (< 0.028)
[2022-03-28] MEDS: Acetaminophen 650 MG Suppository PR PRN (20:09)
[2022-03-28] MEDS: Pantoprazole 40 MG VIAL IVP SCH (20:09)
[2022-03-29] MEDS: Acetaminophen 650 MG Suppository PR PRN (02:11)
[2022-03-29 04:38] LABS: Reticulocyte Count 1.3 % (0.5-1.5)
[2022-03-29] MEDS: fentaNYL Citrate-0.9 % NaCl/PF 100 ML IV SCH (04:59)
[2022-03-29 05:04] LABS: Iron 273 ug/dL (65-175); Phosphorus 2.8 mg/dL (2.3-4.7)
[2022-03-29 05:11] LABS: ALT (SGPT) 15 U/L (8-55); AST (SGOT) 27 U/L (5-34); Albumin 2.8 g/dL (3.4-4.8); Alkaline Phosphatase 60 U/L (40-110); Anion Gap 11 mmol/L (10-20); BUN (Urea Nitrogen) 21 mg/dL (8.4-25.7); Bilirubin, Total 0.9 mg/dL (0.2-1.2); Calc. Creatinine Clearance 41 mL/min (70-130); Calcium 7.9 mg/dL (7.8-10.44); Carbon Dioxide 21 mmol/L (23-31); Chloride 96 mmol/L (98-107); Estimated GFR 31; Globulin 2.5 g/dL (2.4-3.5); Glucose 114 mg/dL (80-115); Magnesium 1.7 mg/dL (1.6-2.6); Potassium 4.3 mmol/L (3.5-5.1); Protein, Total 5.3 g/dL (5.8-8.1); Sodium 124 mmol/L (136-145)
[2022-03-29 05:50] LABS: #Lymphocytes 0.8 thou/uL (1.20-3.40); #Monocytes 0.4 thou/uL (0.11-0.59); #Neutrophils 4.7 thou/uL (1.40-6.50); %Basophils 0.5 % (0.0-1.0); %Eosinophils 0.5 % (0.0-10.0); %Lymphocytes 13.3 % (21.0-51.0); %Neutrophils 78.7 % (42.0-75.0); Anisocytosis MODERATE=16-30 cells (100X) (0-5/hpf); MDiff Complete? YES; Mean Corpuscular HGB CONC 30.7 g/dL (32.0-36.0); Mean Corpuscular Volume 78.4 fL (78.0-98.0); Mean Platelet Volume 9.9 fL (7.4-10.4); Platelet Count 130 thou/uL (130-400); RBC Distribution Width 19.1 % (11.5-14.5); Red Blood Cell (RBC) Count 3.31 mill/uL (4.70-6.10)
[2022-03-29] MEDS: Propofol 1,000 MG/100 ML VIAL IV PRN (06:24)
[2022-03-29 06:56] LABS: Actual Bicarbonate (HCO3a) 22.2 mEq/L (22-28); Base Excess (BEa) 0.8 mEq/L (-2.0 to +3.0); Calcium, Ionized (arterial) 1.06 mmol/L (1.12-1.30); Carboxyhemoglobin (COHb) 1.1 gm% (0.0-3.0); Hemoglobin (Hb) 8.3 g/dL (14.0-18.0); O2 Tension (PaO2), arterial 124.4 mmHg (> 80.0); Potassium - ABG Lab 3.77 mmol/L (3.70-5.30)
[2022-03-29 06:57] LABS: ALV-art Gradient 130.425 mmHg (0-20); CO2 Tension 24.3 mmHg (35.0-45.0); Puncture Site RRA; pH, Arterial 7.58 (7.35-7.45)
[2022-03-29] MEDS ORDERED: Pantoprazole 40 MG VIAL IVP SCH (09:00)
[2022-03-29] MEDS: Enoxaparin Sodium 40 MG/0.4 ML SYRINGE SC SCH (09:17)
[2022-03-29] MEDS: Pantoprazole 40 MG VIAL IVP SCH ×2 (09:18→20:21)
[2022-03-29] MEDS: Sodium Bicarbonate 150 MEQ in Dextrose 5% in Water 1,000 ML IV SCH (09:20)
[2022-03-29] MEDS: Lactated Ringer's 1,000 ML IV SCH (11:15)
[2022-03-30] MEDS: Lactated Ringer's 1,000 ML IV SCH ×2 (00:46→12:25)
[2022-03-30] MEDS: Propofol 1,000 MG/100 ML VIAL IV PRN (03:43)
[2022-03-30 05:02] LABS: ALT (SGPT) 11 U/L (8-55); AST (SGOT) 19 U/L (5-34); Albumin 2.6 g/dL (3.4-4.8); Alkaline Phosphatase 56 U/L (40-110); Anion Gap 12 mmol/L (10-20); BUN (Urea Nitrogen) 22 mg/dL (8.4-25.7); Bilirubin, Total 0.4 mg/dL (0.2-1.2); Calc. Creatinine Clearance 46 mL/min (70-130); Calcium 7.7 mg/dL (7.8-10.44); Carbon Dioxide 22 mmol/L (23-31); Chloride 96 mmol/L (98-107); Estimated GFR 36; Globulin 2.5 g/dL (2.4-3.5); Glucose 108 mg/dL (80-115); Protein, Total 5.1 g/dL (5.8-8.1); Sodium 126 mmol/L (136-145)
[2022-03-30] MEDS: fentaNYL Citrate-0.9 % NaCl/PF 100 ML IV SCH (05:18)
[2022-03-30 06:01] LABS: #Eosinphils 0.1 thou/uL (0.0-0.7); #Lymphocytes 0.8 thou/uL (1.20-3.40); #Monocytes 0.5 thou/uL (0.11-0.59); #Neutrophils 3.3 thou/uL (1.40-6.50); %Eosinophils 2.8 % (0.0-10.0); %Lymphocytes 17.5 % (21.0-51.0); %Monocytes 10.4 % (0.0-10.0); %Neutrophils 69.3 % (42.0-75.0); Hemoglobin 7.3 g/dL (14.0-18.0); Mean Corpuscular HGB CONC 31.5 g/dL (32.0-36.0); Mean Corpuscular Hemoglobin 24.6 pg (27.0-31.0); Mean Corpuscular Volume 78.2 fL (78.0-98.0); Mean Platelet Volume 10.3 fL (7.4-10.4); Platelet Count 110 thou/uL (130-400); Platelet Morphology Comment Appears Adequate; RBC Distribution Width 19.1 % (11.5-14.5); Red Blood Cell (RBC) Count 2.97 mill/uL (4.70-6.10); White Blood Cell (WBC) Count 4.8 thou/uL (4.8-10.8)
[2022-03-30 07:06] LABS: Actual Bicarbonate (HCO3a) 22.7 mEq/L (22-28); Base Excess (BEa) -0.7 mEq/L (-2.0 to +3.0); CO2 Tension 32.9 mmHg (35.0-45.0); Calcium, Ionized (arterial) 1.12 mmol/L (1.12-1.30); Carboxyhemoglobin (COHb) 0.4 gm% (0.0-3.0); Hemoglobin (Hb) 10.5 g/dL (14.0-18.0); O2 Tension (PaO2), arterial 172.2 mmHg (> 80.0); Potassium - ABG Lab 3.87 mmol/L (3.70-5.30); pH, Arterial 7.46 (7.35-7.45)
[2022-03-30 07:17] LABS: ALV-art Gradient 71.875 mmHg (0-20); Puncture Site RRA
[2022-03-30] MEDS: Enoxaparin Sodium 40 MG/0.4 ML SYRINGE SC SCH (09:37)
[2022-03-30] MEDS: Pantoprazole 40 MG VIAL IVP SCH ×2 (09:37→20:15)
[2022-03-30] MEDS ORDERED: Morphine 4 MG/ML VIAL ONE (15:11)
[2022-03-30] MEDS: Morphine 4 MG/ML VIAL SLOW IVP PRN ×4 (15:15→22:49)
[2022-03-30] MEDS: niCARdipine 25 MG in Sodium Chloride 0.9% 250 ML 250 ML IVPB SCH ×2 (16:09→20:03)
[2022-03-30] MEDS: hydrALAZINE 25 MG TAB PO SCH (20:03)
[2022-03-30] MEDS ORDERED: Acetaminophen 325 MG TAB PO PRN (22:47)
[2022-03-31] MEDS: niCARdipine 25 MG in Sodium Chloride 0.9% 250 ML 250 ML IVPB SCH ×2 (00:16→05:34)
[2022-03-31] MEDS: Lactated Ringer's 1,000 ML IV SCH ×2 (03:09→16:42)
[2022-03-31 04:29] LABS: #Eosinphils 0.1 thou/uL (0.0-0.7); #Lymphocytes 0.7 thou/uL (1.20-3.40); #Monocytes 0.7 thou/uL (0.11-0.59); #Neutrophils 4.3 thou/uL (1.40-6.50); %Basophils 0.5 % (0.0-1.0); %Eosinophils 1.3 % (0.0-10.0); %Lymphocytes 11.7 % (21.0-51.0); %Monocytes 12.6 % (0.0-10.0); Hemoglobin 7.6 g/dL (14.0-18.0); Mean Corpuscular HGB CONC 32.2 g/dL (32.0-36.0); Mean Corpuscular Volume 77.6 fL (78.0-98.0); Mean Platelet Volume 9.2 fL (7.4-10.4); Platelet Count 137 thou/uL (130-400); RBC Distribution Width 19.4 % (11.5-14.5); Red Blood Cell (RBC) Count 3.03 mill/uL (4.70-6.10); White Blood Cell (WBC) Count 5.8 thou/uL (4.8-10.8)
[2022-03-31 04:50] LABS: ALT (SGPT) 12 U/L (8-55); AST (SGOT) 21 U/L (5-34); Albumin 2.8 g/dL (3.4-4.8); Alkaline Phosphatase 59 U/L (40-110); Anion Gap 12 mmol/L (10-20); BUN (Urea Nitrogen) 15 mg/dL (8.4-25.7); Bilirubin, Total 0.6 mg/dL (0.2-1.2); Calc. Creatinine Clearance 72 mL/min (70-130); Calcium 8.1 mg/dL (7.8-10.44); Carbon Dioxide 22 mmol/L (23-31); Chloride 99 mmol/L (98-107); Estimated GFR 60; Globulin 2.8 g/dL (2.4-3.5); Glucose 114 mg/dL (80-115); Potassium 4.1 mmol/L (3.5-5.1); Protein, Total 5.6 g/dL (5.8-8.1); Sodium 129 mmol/L (136-145)
[2022-03-31] MEDS: Enoxaparin Sodium 40 MG/0.4 ML SYRINGE SC SCH (07:34)
[2022-03-31] MEDS: hydrALAZINE 25 MG TAB PO SCH ×3 (07:34→19:46)
[2022-03-31] MEDS: Lisinopril 20 MG TAB PO SCH (07:35)
[2022-03-31] MEDS: Carvedilol 6.25 MG TAB PO SCH ×2 (07:35→17:04)
[2022-03-31] MEDS: DULoxetine 60 MG CAP PO SCH (07:35)
[2022-03-31] MEDS: carBAMazepine 200 MG TAB PO SCH ×3 (07:36→19:46)
[2022-03-31] MEDS: Pantoprazole 40 MG VIAL IVP SCH ×2 (07:37→19:55)
[2022-03-31] MEDS: Morphine 4 MG/ML VIAL SLOW IVP PRN ×2 (07:42→12:26)
[2022-03-31] MEDS: HYDROcodone/Acetaminophen 5/325 mg Tablet PO PRN ×2 (15:36→19:45)
[2022-04-01] MEDS: HYDROcodone/Acetaminophen 5/325 mg Tablet PO PRN ×4 (00:24→20:32)
[2022-04-01 04:55] LABS: #Eosinphils 0.1 thou/uL (0.0-0.7); #Lymphocytes 0.6 thou/uL (1.20-3.40); #Monocytes 0.7 thou/uL (0.11-0.59); #Neutrophils 3.8 thou/uL (1.40-6.50); %Basophils 0.4 % (0.0-1.0); %Lymphocytes 12.1 % (21.0-51.0); %Monocytes 13.9 % (0.0-10.0); %Neutrophils 72.5 % (42.0-75.0); Hemoglobin 7.7 g/dL (14.0-18.0); Mean Corpuscular HGB CONC 32.3 g/dL (32.0-36.0); Mean Corpuscular Hemoglobin 25.4 pg (27.0-31.0); Mean Corpuscular Volume 78.4 fL (78.0-98.0); Mean Platelet Volume 9.1 fL (7.4-10.4); Platelet Count 140 thou/uL (130-400); RBC Distribution Width 19.8 % (11.5-14.5); Red Blood Cell (RBC) Count 3.03 mill/uL (4.70-6.10); White Blood Cell (WBC) Count 5.3 thou/uL (4.8-10.8)
[2022-04-01 05:06] LABS: ALT (SGPT) 12 U/L (8-55); AST (SGOT) 23 U/L (5-34); Albumin 3.1 g/dL (3.4-4.8); Alkaline Phosphatase 69 U/L (40-110); Anion Gap 10 mmol/L (10-20); BUN (Urea Nitrogen) 15 mg/dL (8.4-25.7); Bilirubin, Total 0.5 mg/dL (0.2-1.2); Calc. Creatinine Clearance 82 mL/min (70-130); Calcium 8.8 mg/dL (7.8-10.44); Carbon Dioxide 24 mmol/L (23-31); Chloride 99 mmol/L (98-107); Estimated GFR 71; Globulin 3.1 g/dL (2.4-3.5); Glucose 135 mg/dL (80-115); Potassium 4.2 mmol/L (3.5-5.1); Protein, Total 6.2 g/dL (5.8-8.1); Sodium 129 mmol/L (136-145)
[2022-04-01] MEDS: Lactated Ringer's 1,000 ML IV SCH (05:21)
[2022-04-01] MEDS: Enoxaparin Sodium 40 MG/0.4 ML SYRINGE SC SCH (09:12)
[2022-04-01] MEDS: Lisinopril 20 MG TAB PO SCH (09:12)
[2022-04-01] MEDS: hydrALAZINE 25 MG TAB PO SCH ×3 (09:13→20:29)
[2022-04-01] MEDS: Carvedilol 6.25 MG TAB PO SCH ×2 (09:13→16:58)
[2022-04-01] MEDS: carBAMazepine 200 MG TAB PO SCH ×2 (09:13→20:29)
[2022-04-01] MEDS: DULoxetine 60 MG CAP PO SCH (09:13)
[2022-04-01] MEDS: Pantoprazole 40 MG VIAL IVP SCH ×2 (14:16→20:30)
[2022-04-01] MEDS: hydrALAZINE 20 MG/ML VIAL SLOW IVP PRN ×2 (16:58→23:06)
[2022-04-02] MEDS: hydrALAZINE 20 MG/ML VIAL SLOW IVP PRN (03:46)
[2022-04-02] MEDS: HYDROcodone/Acetaminophen 5/325 mg Tablet PO PRN ×4 (03:55→21:11)
[2022-04-02 05:00] LABS: Hemoglobin 9.5 g/dL (14.0-18.0); Mean Corpuscular Hemoglobin 24.8 pg (27.0-31.0); Mean Corpuscular Volume 82.8 fL (78.0-98.0); Mean Platelet Volume 10.1 fL (7.4-10.4); Platelet Count 145 thou/uL (130-400); RBC Distribution Width 20.4 % (11.5-14.5); Red Blood Cell (RBC) Count 3.83 mill/uL (4.70-6.10); White Blood Cell (WBC) Count 4.5 thou/uL (4.8-10.8)
[2022-04-02 05:05] LABS: Anion Gap 13 mmol/L (10-20); BUN (Urea Nitrogen) 11 mg/dL (8.4-25.7); Calc. Creatinine Clearance 122 mL/min (70-130); Calcium 8.8 mg/dL (7.8-10.44); Carbon Dioxide 21 mmol/L (23-31); Chloride 102 mmol/L (98-107); Estimated GFR 98; Glucose 119 mg/dL (80-115); Potassium 4.2 mmol/L (3.5-5.1); Sodium 132 mmol/L (136-145)
[2022-04-02 06:27] LABS: Eosinophils 3 % (0-10); Lymphocytes 25 % (21-51); MDiff Complete? YES; Monocytes 9 % (0-10); Neutrophil 63 % (42-75)
[2022-04-02] MEDS: Carvedilol 6.25 MG TAB PO SCH ×2 (08:14→16:48)
[2022-04-02] MEDS: DULoxetine 60 MG CAP PO SCH ×2 (08:14→20:30)
[2022-04-02] MEDS: hydrALAZINE 25 MG TAB PO SCH ×3 (08:15→20:29)
[2022-04-02] MEDS: Lisinopril 20 MG TAB PO SCH (08:15)
[2022-04-02] MEDS: carBAMazepine 200 MG TAB PO SCH ×2 (08:17→20:30)
[2022-04-02] MEDS: Enoxaparin Sodium 40 MG/0.4 ML SYRINGE SC SCH (08:18)
[2022-04-02] MEDS ORDERED: PROPOFOL 200 MG/20 ML VIAL ONE (09:06)
[2022-04-02] MEDS: Pantoprazole 40 MG VIAL IVP SCH ×2 (10:20→20:30)
[2022-04-02] MEDS: Terazosin HCl 1 MG CAP PO SCH (20:29)
[2022-04-03] MEDS: HYDROcodone/Acetaminophen 5/325 mg Tablet PO PRN ×4 (03:56→22:30)
[2022-04-03] MEDS: hydrALAZINE 20 MG/ML VIAL SLOW IVP PRN (03:56)
[2022-04-03 04:49] LABS: Anion Gap 9 mmol/L (10-20); BUN (Urea Nitrogen) 13 mg/dL (8.4-25.7); Calc. Creatinine Clearance 112 mL/min (70-130); Calcium 8.6 mg/dL (7.8-10.44); Carbon Dioxide 27 mmol/L (23-31); Chloride 102 mmol/L (98-107); Estimated GFR 97; Glucose 148 mg/dL (80-115); Potassium 3.9 mmol/L (3.5-5.1); Sodium 134 mmol/L (136-145)
[2022-04-03 05:25] LABS: #Eosinphils 0.2 thou/uL (0.0-0.7); #Lymphocytes 0.7 thou/uL (1.20-3.40); #Monocytes 0.6 thou/uL (0.11-0.59); #Neutrophils 3.3 thou/uL (1.40-6.50); %Basophils 0.4 % (0.0-1.0); %Eosinophils 4.3 % (0.0-10.0); %Lymphocytes 14.8 % (21.0-51.0); %Monocytes 12.9 % (0.0-10.0); %Neutrophils 67.6 % (42.0-75.0); Anisocytosis MODERATE=16-30 cells (100X) (0-5/hpf); Hemoglobin 9.4 g/dL (14.0-18.0); MDiff Complete? YES; Mean Corpuscular HGB CONC 30.8 g/dL (32.0-36.0); Mean Corpuscular Hemoglobin 25.7 pg (27.0-31.0); Mean Corpuscular Volume 83.4 fL (78.0-98.0); Mean Platelet Volume 9.2 fL (7.4-10.4); Platelet Count 157 thou/uL (130-400); RBC Distribution Width 21.1 % (11.5-14.5); Red Blood Cell (RBC) Count 3.67 mill/uL (4.70-6.10); White Blood Cell (WBC) Count 4.8 thou/uL (4.8-10.8)
[2022-04-03] MEDS: hydrALAZINE 25 MG TAB PO SCH ×3 (08:39→20:11)
[2022-04-03] MEDS: carBAMazepine 200 MG TAB PO SCH ×2 (08:39→20:10)
[2022-04-03] MEDS: Lisinopril 20 MG TAB PO SCH (08:39)
[2022-04-03] MEDS: Carvedilol 6.25 MG TAB PO SCH ×2 (08:40→17:04)
[2022-04-03] MEDS: Enoxaparin Sodium 40 MG/0.4 ML SYRINGE SC SCH (08:40)
[2022-04-03] MEDS ORDERED: Communication Order-Pharmacy FS SCH (09:00)
[2022-04-03] MEDS ORDERED: Furosemide 40 MG/4 ML VIAL SLOW IVP SCH (09:30)
[2022-04-03] MEDS: Amlodipine 10 MG TAB PO SCH (10:55)
[2022-04-03] MEDS: Pantoprazole 40 MG VIAL IVP SCH ×2 (10:55→20:11)
[2022-04-03] MEDS: Budesonide 0.5 MG/2 ML NEB NEB SCH (18:06)
[2022-04-03] MEDS: DULoxetine 60 MG CAP PO SCH (20:10)
[2022-04-03] MEDS: Terazosin HCl 1 MG CAP PO SCH (20:16)
[2022-04-04] MEDS: HYDROcodone/Acetaminophen 5/325 mg Tablet PO PRN (05:56)
[2022-04-04] MEDS ORDERED: Sodium Chloride 0.9% 1,000 ML IV SCH ×2 (06:00→07:59)
[2022-04-04] MEDS ORDERED: Lidocaine 1% (PF) 30 ML VIAL ONE (06:26)
[2022-04-04] MEDS ORDERED: Heparin 10,000 UNITS/ 10 ML VIAL ONE (06:26)
[2022-04-04] MEDS ORDERED: Midazolam HCl 2 mg/2 ml Vial ONE (07:17)
[2022-04-04] MEDS ORDERED: Fentanyl 100 MCG/2 ML VIAL ONE (07:17)
[2022-04-04] MEDS ORDERED: Protamine Sulfate 50 MG/5 ML VIAL ONE (07:36)
[2022-04-04] MEDS ORDERED: hydrALAZINE 20 MG/ML VIAL ONE (07:36)
[2022-04-04] MEDS ORDERED: Nitroglycerin 0.4 MG TAB (25 Tab Bottle) SL PRN (07:58)
[2022-04-04] MEDS ORDERED: Sodium Chloride 0.9% 200 ML IV PRN (07:58)
[2022-04-04] MEDS ORDERED: Acetaminophen/Codeine 30-300mg Tablet PO PRN (07:58)
[2022-04-04 08:22] VITALS: BMI 28.5
[2022-04-04] MEDS: hydrALAZINE 25 MG TAB PO SCH ×3 (08:43→21:31)
[2022-04-04] MEDS: carBAMazepine 200 MG TAB PO SCH ×4 (08:44→21:45)
[2022-04-04] MEDS: Amlodipine 10 MG TAB PO SCH (08:44)
[2022-04-04] MEDS: Lisinopril 20 MG TAB PO SCH (08:44)
[2022-04-04] MEDS: Aspirin 81 mg Enteric Coated Tablet PO SCH (08:44)
[2022-04-04] MEDS: Carvedilol 6.25 MG TAB PO SCH ×2 (08:44→17:11)
[2022-04-04] MEDS: Budesonide 0.5 MG/2 ML NEB NEB SCH ×2 (08:45→18:13)
[2022-04-04] MEDS: Pantoprazole 40 MG VIAL IVP SCH ×2 (08:45→22:31)
[2022-04-04] MEDS ORDERED: Iopamidol 370 76% 50 ML VIAL FS ONE (09:33)
[2022-04-04] MEDS ORDERED: Iopamidol 370 76% 100 ML VIAL ONE (09:33)
[2022-04-04 10:07] LABS: Anion Gap 12 mmol/L (10-20); BUN (Urea Nitrogen) 12 mg/dL (8.4-25.7); Calc. Creatinine Clearance 120 mL/min (70-130); Calcium 8.5 mg/dL (7.8-10.44); Carbon Dioxide 26 mmol/L (23-31); Cardiac Risk 2.7 (Less than 4.5); Chloride 99 mmol/L (98-107); Cholesterol 122 mg/dl (< 200 Desired); Estimated GFR 101; Glucose 124 mg/dL (80-115); HDL Cholesterol 46 mg/dL (>60 Neg Risk); LDL Cholesterol, Calculated 64 mg/dL; Potassium 3.9 mmol/L (3.5-5.1); Sodium 133 mmol/L (136-145); Triglycerides 60 mg/dL (Less than 150)
[2022-04-04 11:37] LABS: #Eosinphils 0.2 thou/uL (0.0-0.7); #Lymphocytes 0.8 thou/uL (1.20-3.40); #Monocytes 0.5 thou/uL (0.11-0.59); #Neutrophils 2.5 thou/uL (1.40-6.50); %Basophils 0.2 % (0.0-1.0); %Eosinophils 4.1 % (0.0-10.0); %Lymphocytes 20.3 % (21.0-51.0); %Monocytes 12.3 % (0.0-10.0); %Neutrophils 63.1 % (42.0-75.0); Hemoglobin 9.6 g/dL (14.0-18.0); Mean Corpuscular HGB CONC 30.5 g/dL (32.0-36.0); Mean Corpuscular Hemoglobin 25.2 pg (27.0-31.0); Mean Corpuscular Volume 82.5 fL (78.0-98.0); Mean Platelet Volume 8.7 fL (7.4-10.4); Platelet Count 174 thou/uL (130-400); RBC Distribution Width 21.8 % (11.5-14.5); Red Blood Cell (RBC) Count 3.81 mill/uL (4.70-6.10)
[2022-04-04 11:57] LABS: Hypochromia SLIGHT = 6-15 cells (100X) (0-5/hpf); MDiff Complete? YES; Platelet Morphology Comment Appears Adequate; Polychromasia SLIGHT = 2-3 cells (100X) (0-2/hpf)
[2022-04-04] MEDS: Acetaminophen/Codeine 30-300mg Tablet PO PRN ×3 (12:34→21:51)
[2022-04-04] MEDS ORDERED: Atorvastatin Calcium 10 MG TAB PO SCH (21:00)
[2022-04-04] MEDS: DULoxetine 60 MG CAP PO SCH (21:31)
[2022-04-04] MEDS: Terazosin HCl 1 MG CAP PO SCH (21:35)
[2022-04-05] MEDS: HYDROcodone/Acetaminophen 5/325 mg Tablet PO PRN (03:08)
[2022-04-05 04:32] LABS: Anion Gap 12 mmol/L (10-20); BUN (Urea Nitrogen) 13 mg/dL (8.4-25.7); Calc. Creatinine Clearance 115 mL/min (70-130); Calcium 8.4 mg/dL (7.8-10.44); Carbon Dioxide 25 mmol/L (23-31); Chloride 99 mmol/L (98-107); Estimated GFR 100; Glucose 116 mg/dL (80-115); Potassium 3.9 mmol/L (3.5-5.1); Sodium 132 mmol/L (136-145)
[2022-04-05 04:51] LABS: #Eosinphils 0.3 thou/uL (0.0-0.7); #Monocytes 0.4 thou/uL (0.11-0.59); #Neutrophils 2.2 thou/uL (1.40-6.50); %Basophils 0.5 % (0.0-1.0); %Eosinophils 7.3 % (0.0-10.0); %Lymphocytes 25.5 % (21.0-51.0); %Monocytes 10.8 % (0.0-10.0); %Neutrophils 55.9 % (42.0-75.0); Anisocytosis SLIGHT = 6-15 cells (100X) (0-5/hpf); Elliptocytes SLIGHT = 2-5 cells (100X) (0-1/hpf); Hemoglobin 9.5 g/dL (14.0-18.0); MDiff Complete? YES; Mean Corpuscular HGB CONC 30.8 g/dL (32.0-36.0); Mean Corpuscular Hemoglobin 25.8 pg (27.0-31.0); Mean Corpuscular Volume 83.6 fL (78.0-98.0); Mean Platelet Volume 8.9 fL (7.4-10.4); Platelet Count 190 thou/uL (130-400); RBC Distribution Width 22.4 % (11.5-14.5); White Blood Cell (WBC) Count 3.9 thou/uL (4.8-10.8)
[2022-04-05] MEDS: Budesonide 0.5 MG/2 ML NEB NEB SCH ×2 (06:52→18:43)
[2022-04-05] MEDS: Acetaminophen/Codeine 30-300mg Tablet PO PRN ×3 (09:21→18:04)
[2022-04-05] MEDS: Aspirin 81 mg Enteric Coated Tablet PO SCH (09:21)
[2022-04-05] MEDS: hydrALAZINE 25 MG TAB PO SCH ×2 (09:23→13:54)
[2022-04-05] MEDS: Carvedilol 6.25 MG TAB PO SCH ×2 (09:23→17:02)
[2022-04-05] MEDS: Amlodipine 10 MG TAB PO SCH (09:23)
[2022-04-05] MEDS: Lisinopril 20 MG TAB PO SCH (09:23)
[2022-04-05] MEDS: Pantoprazole 40 MG VIAL IVP SCH (09:26)
[2022-04-05] MEDS ORDERED: Furosemide 40 MG/4 ML VIAL SLOW IVP SCH (11:30)
[2022-04-05 17:36] VITALS: BP 178/85; TEMP 98.1
== END 2022-04-05 20:40 | DRG 286 ==
LOC: EEVIPCON 08:01 → ERS 08:01 → CCL 10:16 → CCU 10:17 → 2NO 03-31 12:27
PROVIDERS: ADMIT Family Medicine; ATTEND Internal Medicine
PROC: 5A1223Z Performance of Cardiac Pacing, Continuous (ICD-10-PCS; principal; 2022-03-28)
PROC: 30243N1 Transfusion of Nonautologous Red Blood Cells into Central Vein, Percutaneous Approach (ICD-10-PCS; 2022-03-28)
PROC: 0D9670Z Drainage of Stomach with Drainage Device, Via Natural or Artificial Opening (ICD-10-PCS; 2022-03-28)
PROC: 06HY33Z Insertion of Infusion Device into Lower Vein, Percutaneous Approach (ICD-10-PCS; 2022-03-28)
PROC: 5A1945Z Respiratory Ventilation, 24-96 Consecutive Hours (ICD-10-PCS; 2022-03-28)
PROC: 3E043XZ Introduction of Vasopressor into Central Vein, Percutaneous Approach (ICD-10-PCS; 2022-03-28)
PROC: 3E03329 Introduction of Other Anti-infective into Peripheral Vein, Percutaneous Approach (ICD-10-PCS; 2022-03-28)
PROC: 0W3P8ZZ Control Bleeding in Gastrointestinal Tract, Via Natural or Artificial Opening Endoscopic (ICD-10-PCS; 2022-04-02)
PROC: 4A023N7 Measurement of Cardiac Sampling and Pressure, Left Heart, Percutaneous Approach (ICD-10-PCS; 2022-04-04)
PROC: B2151ZZ Fluoroscopy of Left Heart using Low Osmolar Contrast (ICD-10-PCS; 2022-04-04)
PROC: 5A12012 Performance of Cardiac Output, Single, Manual (ICD-10-PCS; 2022-04-04)
PROC: B2111ZZ Fluoroscopy of Multiple Coronary Arteries using Low Osmolar Contrast (ICD-10-PCS; 2022-04-04)
DX: R00.1 Bradycardia, unspecified (principal); R57.1 Hypovolemic shock; K31.811 Angiodysplasia of stomach and duodenum with bleeding; J96.01 Acute respiratory failure with hypoxia; G93.41 Metabolic encephalopathy; I46.8 Cardiac arrest due to other underlying condition; I50.33 Acute on chronic diastolic (congestive) heart failure; R57.0 Cardiogenic shock; D62 Acute posthemorrhagic anemia; M86.9 Osteomyelitis, unspecified; N17.9 Acute kidney failure, unspecified; M96.89 Other intraoperative and postprocedural complications and disorders of the musculoskeletal system; I82.621 Acute embolism and thrombosis of deep veins of right upper extremity; E87.1 Hypo-osmolality and hyponatremia; E87.2 Acidosis; I47.1 Supraventricular tachycardia; E86.1 Hypovolemia; D50.9 Iron deficiency anemia, unspecified; Z20.822 Contact with and (suspected) exposure to COVID-19; J44.9 Chronic obstructive pulmonary disease, unspecified; K21.9 Gastro-esophageal reflux disease without esophagitis; M19.90 Unspecified osteoarthritis, unspecified site; M23.92 Unspecified internal derangement of left knee; L21.9 Seborrheic dermatitis, unspecified; F32.A Depression, unspecified; I11.0 Hypertensive heart disease with heart failure; B18.2 Chronic viral hepatitis C; E11.51 Type 2 diabetes mellitus with diabetic peripheral angiopathy without gangrene; D69.6 Thrombocytopenia, unspecified; M23.90 Unspecified internal derangement of unspecified knee; F34.1 Dysthymic disorder; Y83.8 Other surgical procedures as the cause of abnormal reaction of the patient, or of later complication, without mention of misadventure at the time of the procedure; J20.9 Acute bronchitis, unspecified; Z79.899 Other long term (current) drug therapy; Z89.612 Acquired absence of left leg above knee; Z98.890 Other specified postprocedural states; Z87.891 Personal history of nicotine dependence; Z79.51 Long term (current) use of inhaled steroids; Z82.61 Family history of arthritis; Z78.1 Physical restraint status
CPT/HCPCS: 33210; 36415; 36430; 36556; 36600; 51702; 71045; 80048; 80053; 80061; 81003; 82274; 82553; 82607; 82746; 82805; 83540; 83605; 83735; 84100; 84443; 84484; 85025; 85046; 85347; 85610; 85730; 86850; 86900; 86901; 87086; 93005; 93010; 93306; 93458; 94002; 94003; 94640; 94760; 96365; 96366; 96368; 96375; 96376; 97139; 99152; C9113; J0171; J0360; J0692; J1644; J1650; J1940; J2001; J2060; J2250; J2270; J2704; J2720; J3010; J3370; J7050; J7070; J7120; J7620; J7626; P9016; Q9967; U0002; U0003; U0005

== ENCOUNTER 2022-08-03 23:35 | Inpatient (IN) | payer OTHER ==
[2022-08-04 00:13] VITALS: BMI 28.1
[2022-08-04] MEDS ORDERED: Acetaminophen 325 MG TAB PO SCH (00:30)
[2022-08-04] MEDS ORDERED: diphenhydrAMINE 50 MG/ML VIAL IVP SCH (00:30)
[2022-08-04] MEDS ORDERED: hydrALAZINE 20 MG/ML VIAL SLOW IVP PRN (00:31)
[2022-08-04] MEDS ORDERED: Amlodipine 10 MG TAB PO SCH (00:31)
[2022-08-04] MEDS ORDERED: Morphine 4 MG/ML VIAL SLOW IVP PRN (00:41)
[2022-08-04 01:13] LABS: Anion Gap 12 mmol/L (10-20); BUN (Urea Nitrogen) 22 mg/dL (8.4-25.7); Calc. Creatinine Clearance 94 mL/min (70-130); Calcium 8.5 mg/dL (7.8-10.44); Carbon Dioxide 19 mmol/L (23-31); Chloride 95 mmol/L (98-107); Estimated GFR 91; Glucose 109 mg/dL (80-115); Potassium 4.5 mmol/L (3.5-5.1); Sodium 121 mmol/L (136-145)
[2022-08-04] MEDS: HYDROcodone/Acetaminophen 7.5/325 mg Tablet PO PRN ×5 (03:46→21:07)
[2022-08-04 06:23] LABS: #Lymphocytes 0.7 thou/uL (1.20-3.40); #Monocytes 0.4 thou/uL (0.11-0.59); %Basophils 0.4 % (0.0-1.0); %Eosinophils 0.9 % (0.0-10.0); %Neutrophils 77.7 % (42.0-75.0); Hemoglobin 8.2 g/dL (14.0-18.0); Mean Corpuscular HGB CONC 31.3 g/dL (32.0-36.0); Mean Corpuscular Hemoglobin 24.4 pg (27.0-31.0); Mean Corpuscular Volume 78.2 fl (78.0-98.0); Mean Platelet Volume 9.5 fL (7.4-10.4); Platelet Count 191 thou/uL (130-400); RBC Distribution Width 20.4 % (11.5-14.5); Red Blood Cell (RBC) Count 3.36 mill/uL (4.70-6.10); White Blood Cell (WBC) Count 5.2 thou/uL (4.8-10.8)
[2022-08-04 06:49] LABS: ALT (SGPT) 13 U/L (8-55); AST (SGOT) 32 U/L (5-34); Albumin 3.7 g/dL (3.4-4.8); Alkaline Phosphatase 137 U/L (40-110); Anion Gap 13 mmol/L (10-20); BUN (Urea Nitrogen) 18 mg/dL (8.4-25.7); Bilirubin, Total 2.4 mg/dL (0.2-1.2); Calc. Creatinine Clearance 108 mL/min (70-130); Calcium 8.7 mg/dL (7.8-10.44); Carbon Dioxide 19 mmol/L (23-31); Chloride 100 mmol/L (98-107); Estimated GFR 98; Globulin 3.2 g/dL (2.4-3.5); Glucose 103 mg/dL (80-115); Potassium 4.9 mmol/L (3.5-5.1); Protein, Total 6.9 g/dL (5.8-8.1); Sodium 127 mmol/L (136-145)
[2022-08-04] MEDS: Dextrose 5% in Water 1,000 ML IV SCH ×3 (07:48→22:47)
[2022-08-04] MEDS: hydrALAZINE 25 MG TAB PO SCH ×3 (08:03→21:09)
[2022-08-04] MEDS: Amlodipine 10 MG TAB PO SCH (08:04)
[2022-08-04 10:12] LABS: Anion Gap 10 mmol/L (10-20); BUN (Urea Nitrogen) 17 mg/dL (8.4-25.7); Calc. Creatinine Clearance 107 mL/min (70-130); Calcium 8.6 mg/dL (7.8-10.44); Carbon Dioxide 23 mmol/L (23-31); Chloride 100 mmol/L (98-107); Estimated GFR 98; Glucose 114 mg/dL (80-115); Potassium 4.4 mmol/L (3.5-5.1); Sodium 129 mmol/L (136-145)
[2022-08-04] MEDS ORDERED: GoLYTELY 4,000 ml Bottle PO SCH (10:45)
[2022-08-04] MEDS: Loratadine 10 MG TAB PO PRN (12:48)
[2022-08-04 13:39] LABS: Hemoglobin 7.9 g/dL (14.0-18.0); Mean Corpuscular HGB CONC 31.1 g/dL (32.0-36.0); Mean Corpuscular Hemoglobin 24.5 pg (27.0-31.0); Mean Corpuscular Volume 78.8 fl (78.0-98.0); Mean Platelet Volume 8.3 fL (7.4-10.4); Platelet Count 199 thou/uL (130-400); RBC Distribution Width 19.7 % (11.5-14.5); Red Blood Cell (RBC) Count 3.23 mill/uL (4.70-6.10); White Blood Cell (WBC) Count 4.5 thou/uL (4.8-10.8)
[2022-08-04 13:48] LABS: Anion Gap 11 mmol/L (10-20); BUN (Urea Nitrogen) 15 mg/dL (8.4-25.7); Calc. Creatinine Clearance 108 mL/min (70-130); Calcium 8.5 mg/dL (7.8-10.44); Carbon Dioxide 19 mmol/L (23-31); Chloride 101 mmol/L (98-107); Estimated GFR 98; Glucose 118 mg/dL (80-115); Potassium 3.8 mmol/L (3.5-5.1); Sodium 127 mmol/L (136-145)
[2022-08-04 17:38] LABS: Anion Gap 11 mmol/L (10-20); BUN (Urea Nitrogen) 13 mg/dL (8.4-25.7); Calc. Creatinine Clearance 110 mL/min (70-130); Calcium 8.7 mg/dL (7.8-10.44); Carbon Dioxide 20 mmol/L (23-31); Chloride 99 mmol/L (98-107); Estimated GFR 99; Glucose 116 mg/dL (80-115); Potassium 4.3 mmol/L (3.5-5.1); Sodium 126 mmol/L (136-145)
[2022-08-04] MEDS ORDERED: FLU VACC QS2022-23(6MOS UP)/PF 60 MCG/0.5 ML SYRINGE IM ONE (18:00)
[2022-08-04 19:34] LABS: Mean Corpuscular HGB CONC 31.4 g/dL (32.0-36.0); Mean Corpuscular Hemoglobin 24.4 pg (27.0-31.0); Mean Corpuscular Volume 77.8 fl (78.0-98.0); Mean Platelet Volume 9.1 fL (7.4-10.4); Platelet Count 220 thou/uL (130-400); RBC Distribution Width 20.2 % (11.5-14.5); Red Blood Cell (RBC) Count 3.26 mill/uL (4.70-6.10); White Blood Cell (WBC) Count 5.4 thou/uL (4.8-10.8)
[2022-08-04] MEDS: Terazosin HCl 1 MG CAP PO SCH (21:09)
[2022-08-05] MEDS: HYDROcodone/Acetaminophen 7.5/325 mg Tablet PO PRN ×5 (00:59→23:34)
[2022-08-05 01:03] LABS: Hemoglobin 7.8 g/dL (14.0-18.0); Mean Corpuscular HGB CONC 30.7 g/dL (32.0-36.0); Mean Corpuscular Volume 78.3 fl (78.0-98.0); Platelet Count 209 thou/uL (130-400); RBC Distribution Width 20.6 % (11.5-14.5); Red Blood Cell (RBC) Count 3.23 mill/uL (4.70-6.10); White Blood Cell (WBC) Count 4.5 thou/uL (4.8-10.8)
[2022-08-05] MEDS ORDERED: Morphine 4 MG/ML VIAL SLOW IVP PRN (05:24)
[2022-08-05] MEDS: Dextrose 5% in Water 1,000 ML IV SCH ×3 (05:45→20:48)
[2022-08-05] MEDS ORDERED: fentaNYL PF 100 MCG/2 ML SYRINGE ONE (09:11)
[2022-08-05] MEDS ORDERED: Promethazine HCl 25 MG/ML VIAL IM PRN (10:24)
[2022-08-05] MEDS ORDERED: Promethazine HCl 25 MG/ML VIAL IVPB PRN (10:24)
[2022-08-05] MEDS ORDERED: Ondansetron HCl/PF 4 MG/2 ML Vial IVP PRN (10:24)
[2022-08-05] MEDS ORDERED: Ketamine 50 MG/ML (10ML VIAL) ONE (10:27)
[2022-08-05] MEDS ORDERED: PROPOFOL 200 MG/20 ML VIAL ONE (10:43)
[2022-08-05] MEDS ORDERED: Midazolam HCl 2 mg/2 ml Vial ONE (10:45)
[2022-08-05] MEDS: hydrALAZINE 25 MG TAB PO SCH ×3 (12:25→20:45)
[2022-08-05] MEDS: Loratadine 10 MG TAB PO PRN (12:27)
[2022-08-05] MEDS: Amlodipine 10 MG TAB PO SCH (12:27)
[2022-08-05 14:17] LABS: Albumin 3.9 g/dL (3.4-4.8); Anion Gap 11 mmol/L (10-20); BUN (Urea Nitrogen) 8 mg/dL (8.4-25.7); BUN/Creatinine Ratio 9.09; Calc. Creatinine Clearance 100 mL/min (70-130); Calcium 8.9 mg/dL (7.8-10.44); Carbon Dioxide 24 mmol/L (23-31); Chloride 99 mmol/L (98-107); Estimated GFR 96; Glucose 106 mg/dL (80-115); Phosphorus 3.1 mg/dL (2.3-4.7); Potassium 4.1 mmol/L (3.5-5.1); Sodium 130 mmol/L (136-145)
[2022-08-05] MEDS ORDERED: CHLORPHENIRAMINE MALEATE 4 MG PO SCH (15:00)
[2022-08-05] MEDS: Carvedilol 6.25 MG TAB PO SCH (20:45)
[2022-08-05] MEDS: Atorvastatin Calcium 10 MG TAB PO SCH (20:45)
[2022-08-05] MEDS: Terazosin HCl 1 MG CAP PO SCH (20:46)
[2022-08-05] MEDS ORDERED: carBAMazepine 200 MG TAB PO SCH (21:00)
[2022-08-06] MEDS: HYDROcodone/Acetaminophen 7.5/325 mg Tablet PO PRN ×5 (04:34→19:36)
[2022-08-06 07:07] LABS: #Eosinphils 0.2 thou/uL (0.0-0.7); #Lymphocytes 1.3 thou/uL (1.20-3.40); #Monocytes 0.7 thou/uL (0.11-0.59); #Neutrophils 2.9 thou/uL (1.40-6.50); %Basophils 0.5 % (0.0-1.0); %Lymphocytes 25.1 % (21.0-51.0); %Monocytes 13.4 % (0.0-10.0); %Neutrophils 57.9 % (42.0-75.0); Hemoglobin 7.9 g/dL (14.0-18.0); Mean Corpuscular HGB CONC 30.9 g/dL (32.0-36.0); Mean Corpuscular Hemoglobin 24.4 pg (27.0-31.0); Mean Corpuscular Volume 78.8 fl (78.0-98.0); Mean Platelet Volume 8.2 fL (7.4-10.4); Platelet Count 220 thou/uL (130-400); RBC Distribution Width 21.6 % (11.5-14.5); Red Blood Cell (RBC) Count 3.23 mill/uL (4.70-6.10)
[2022-08-06 07:35] LABS: Anion Gap 10 mmol/L (10-20); BUN (Urea Nitrogen) 10 mg/dL (8.4-25.7); Calc. Creatinine Clearance 102 mL/min (70-130); Carbon Dioxide 23 mmol/L (23-31); Chloride 96 mmol/L (98-107); Estimated GFR 97; Glucose 103 mg/dL (80-115); Potassium 4.6 mmol/L (3.5-5.1); Sodium 124 mmol/L (136-145)
[2022-08-06] MEDS: Amlodipine 10 MG TAB PO SCH (08:39)
[2022-08-06] MEDS: Carvedilol 6.25 MG TAB PO SCH ×2 (08:39→19:34)
[2022-08-06] MEDS: hydrALAZINE 25 MG TAB PO SCH ×3 (08:40→19:34)
[2022-08-06] MEDS: Dextrose 5% in Water 1,000 ML IV SCH (08:40)
[2022-08-06] MEDS: Loratadine 10 MG TAB PO PRN (08:42)
[2022-08-06] MEDS ORDERED: carBAMazepine 200 MG TAB PO SCH (09:00)
[2022-08-06] MEDS ORDERED: Ferrous Sulfate 325 MG TAB PO SCH (09:00)
[2022-08-06 14:05] LABS: Anion Gap 12 mmol/L (10-20); BUN (Urea Nitrogen) 9 mg/dL (8.4-25.7); Calc. Creatinine Clearance 97 mL/min (70-130); Calcium 8.8 mg/dL (7.8-10.44); Carbon Dioxide 22 mmol/L (23-31); Chloride 95 mmol/L (98-107); Estimated GFR 96; Glucose 132 mg/dL (80-115); Potassium 4.6 mmol/L (3.5-5.1); Sodium 124 mmol/L (136-145)
[2022-08-06] MEDS: Sodium Chloride 1 GM TAB PO SCH ×2 (15:58→19:35)
[2022-08-06] MEDS: Atorvastatin Calcium 10 MG TAB PO SCH (19:34)
[2022-08-06] MEDS: Gabapentin 300 MG CAP PO SCH (19:35)
[2022-08-06] MEDS: Terazosin HCl 1 MG CAP PO SCH (19:37)
[2022-08-06 19:44] LABS: Anion Gap 8 mmol/L (10-20); BUN (Urea Nitrogen) 11 mg/dL (8.4-25.7); Calc. Creatinine Clearance 101 mL/min (70-130); Calcium 8.7 mg/dL (7.8-10.44); Carbon Dioxide 24 mmol/L (23-31); Chloride 96 mmol/L (98-107); Estimated GFR 97; Glucose 120 mg/dL (80-115); Potassium 4.7 mmol/L (3.5-5.1); Sodium 123 mmol/L (136-145)
[2022-08-07] MEDS: HYDROcodone/Acetaminophen 7.5/325 mg Tablet PO PRN ×3 (01:09→11:16)
[2022-08-07 05:28] LABS: #Eosinphils 0.2 thou/uL (0.0-0.7); #Lymphocytes 1.1 thou/uL (1.20-3.40); #Monocytes 0.5 thou/uL (0.11-0.59); #Neutrophils 3.9 thou/uL (1.40-6.50); %Basophils 0.1 % (0.0-1.0); %Eosinophils 2.9 % (0.0-10.0); %Lymphocytes 19.7 % (21.0-51.0); %Monocytes 9.1 % (0.0-10.0); %Neutrophils 68.2 % (42.0-75.0); Hemoglobin 7.5 g/dL (14.0-18.0); Mean Corpuscular HGB CONC 30.8 g/dL (32.0-36.0); Mean Corpuscular Hemoglobin 24.4 pg (27.0-31.0); Mean Corpuscular Volume 79.1 fl (78.0-98.0); Mean Platelet Volume 8.7 fL (7.4-10.4); Platelet Count 184 thou/uL (130-400); RBC Distribution Width 21.9 % (11.5-14.5); Red Blood Cell (RBC) Count 3.07 mill/uL (4.70-6.10); White Blood Cell (WBC) Count 5.7 thou/uL (4.8-10.8)
[2022-08-07 05:29] LABS: Anisocytosis SLIGHT = 6-15 cells (100X) (0-5/hpf); Hypochromia SLIGHT = 6-15 cells (100X) (0-5/hpf); MDiff Complete? YES; Microcytosis SLIGHT = 6-15 cells (100X) (0-5/hpf)
[2022-08-07 05:40] LABS: Anion Gap 11 mmol/L (10-20); BUN (Urea Nitrogen) 10 mg/dL (8.4-25.7); Calc. Creatinine Clearance 105 mL/min (70-130); Calcium 8.8 mg/dL (7.8-10.44); Carbon Dioxide 22 mmol/L (23-31); Chloride 97 mmol/L (98-107); Estimated GFR 98; Glucose 111 mg/dL (80-115); Potassium 4.6 mmol/L (3.5-5.1); Sodium 125 mmol/L (136-145)
[2022-08-07] MEDS: Amlodipine 10 MG TAB PO SCH (08:18)
[2022-08-07] MEDS: Gabapentin 300 MG CAP PO SCH (08:19)
[2022-08-07] MEDS: Carvedilol 6.25 MG TAB PO SCH (08:19)
[2022-08-07] MEDS: hydrALAZINE 25 MG TAB PO SCH (08:20)
[2022-08-07] MEDS: Sodium Chloride 1 GM TAB PO SCH (08:20)
[2022-08-07] MEDS: Loratadine 10 MG TAB PO PRN (08:27)
[2022-08-07] MEDS ORDERED: Ferrous Sulfate 325 MG TAB PO SCH (17:00)
[2022-08-08 02:37] VITALS: BP 133/64; TEMP 98.4
== END 2022-08-07 14:26 | disposition home or self-care (01) | DRG 378 ==
LOC: IMCU/EMU 23:55 → 2NO 08-06 20:07
PROVIDERS: ADMIT Internal Medicine; ATTEND Hospitalist
PROC: 30233N1 Transfusion of Nonautologous Red Blood Cells into Peripheral Vein, Percutaneous Approach (ICD-10-PCS; 2022-08-04)
PROC: 0W3P8ZZ Control Bleeding in Gastrointestinal Tract, Via Natural or Artificial Opening Endoscopic (ICD-10-PCS; principal; 2022-08-05)
PROC: 0DJD8ZZ Inspection of Lower Intestinal Tract, Via Natural or Artificial Opening Endoscopic (ICD-10-PCS; 2022-08-05)
DX: K31.811 Angiodysplasia of stomach and duodenum with bleeding (principal); D62 Acute posthemorrhagic anemia; M86.9 Osteomyelitis, unspecified; E22.2 Syndrome of inappropriate secretion of antidiuretic hormone; E87.20 Acidosis, unspecified; Z79.1 Long term (current) use of non-steroidal anti-inflammatories (NSAID); Z79.899 Other long term (current) drug therapy; K64.8 Other hemorrhoids; Z20.822 Contact with and (suspected) exposure to COVID-19; B18.2 Chronic viral hepatitis C; J44.9 Chronic obstructive pulmonary disease, unspecified; Z87.891 Personal history of nicotine dependence; I25.10 Atherosclerotic heart disease of native coronary artery without angina pectoris; G62.9 Polyneuropathy, unspecified; K74.60 Unspecified cirrhosis of liver; Z99.3 Dependence on wheelchair; Z89.612 Acquired absence of left leg above knee; I11.0 Hypertensive heart disease with heart failure; I50.9 Heart failure, unspecified
CPT/HCPCS: 36415; 36430; 80048; 80069; 85025; 86850; 86900; 86901; J1200; J1610; J2250; J2270; J2704; J7070; P9016